=== PATIENT | female | born 1975 | race African-American/Black ===

== ENCOUNTER 2019-09-26 07:22 | Emergency (ER) | payer OTHER ==
[~2019-09-26] VITALS: Ht 165.1 cm; Wt 128.6 kg
--- OUTSIDE RECORDS SUMMARY | 2019-09-26 07:27 | XMS REPORT | Clinical Summary ---
Author Author [employer] [facility] [employer] Address Unknown Phone Unavailable Care Team Providers Care Service Order Expediter Name Role Phone Vasquez Quinones MD PCP Allergies Comments Active Allergy Reactions Severity Noted Date Amoxicillin 10/05/2016 Amoxicillin-Pot 04/07/2017 Clavulanate Ciprofloxacin 10/05/2016 Bupropion Hcl 10/05/2016 Medications End Date Status Medication Sig Dispensed Refills Start Date Active XARELTO 20 mg tablet TK 1 T PO QD 2 7 Active hydrOXYzine (ATARAX) 25 Take 25 mg by 0 MG tablet mouth. Active diphenhydrAMINE Take 50 mg by 0 (BENADRYL) 25 mg tablet mouth nightly as needed for sleep. Active HYDROcodone-acetaminophen Take 1 tablet 0 (NORCO) 10-325 mg per by mouth tablet every 6 (six) hours as needed for moderate pain. Active gabapentin (NEURONTIN) Take 1 30 capsule 0 300 mg capsule capsule (300 9 mg) by mouth once daily for 1 day, then 1 capsule twice daily for 1 day, then 1 capsule three times a day. Active Problems Not on file Encounters Care Team Description Date Type Specialty Camilo Ewing MD Left arm pain (Primary Dx); Paresthesias 01/06/2019 Emergency Emergency Medicine after 09/25/2018 Social History Date Tobacco Use Types Packs/Day Years Used Quit: 08/15/2002 Former Smoker Smokeless Tobacco: Never Used Drinks/Week oz/Week Comments Alcohol Use socially Yes Sex Assigned at Date Recorded Not on file Industry Job Start Date Occupation Not on file Not on file Not on file Travel End Travel History Travel Start No recent travel history available. Last Filed Vital Signs Reading Time Taken Comments Vital Sign 107/53 01/06/2019 4:15 AM CDT Blood Pressure 64 01/06/2019 4:15 AM CDT Pulse 35.9 C (96.7 F) 01/06/2019 4:15 AM CDT Temperature 18 01/06/2019 4:15 AM CDT Respiratory Rate 98% 01/06/2019 4:15 AM CDT Oxygen Saturation - - Inhaled Oxygen Concentration - - Weight 162.6 cm (5' 4") 01/06/2019 1:30 AM CDT Height - - Body Mass Index Plan of Treatment Health Maintenance Due Date Last Done Comments CERVICAL CANCER SCREENING 1997 INFLUENZA VACCINE 11/16/2019 Procedures Comments Procedure Name Priority Date/Time Associated Diag nosis XR CERVICAL SPINE 2 OR 3 STAT 01/06/2019 VW 2:58 AM CDT XR ELBOW 3+ VW LEFT STAT 01/06/2019 2:57 AM CDT PROTHROMBIN TIME WITH STAT 01/06/2019 INR, I-STAT 2:34 AM CDT BASIC METABOLIC PANEL STAT 01/06/2019 2:33 AM CDT HC COMPLETE BLD COUNT STAT 01/06/2019 W/AUTO DIFF 2:33 AM CDT US DUPLEX VENOUS UPPER STAT 01/06/2019 EXTREMITY LEFT 2:15 AM CDT after 09/25/2018 Results * XR Cervical Spine 2 Or 3 Vw (01/06/2019 2:58 AM CDT) Specimen Narrative Performed At Examination: XR CERVICAL SPINE 2 OR 3 VW [facility] T Clinical History: left arm pain possi ble radiculopathy Comparison: None. Findings: 3 views of the cervical spine are obtai nevaeh. No acute fracture or dislocation is see n. The disc spaces are within normal limit s. Alignment of vertebral bodies are jamal l. IMPRESSION: 1. No acute abnormality identified in c ervical spine. [facility]-[id number] Procedure Note Interface, Radiology Results Incoming - 01/06/2019 3:24 AM CDT Examination: XR CERVICAL SPINE 2 OR 3 VW Clinical History: left arm pain possible radiculopathy Comparison: None. Findings: 3 views of the cervical spine are obtain ed. No acute fracture or dislocation is seen. The disc spaces are within normal limits. Alignment of vertebral bodies are normal. IMPRESSION: 1. No acute abnormality identified in ce rvical spine. [facility]-[id number] Performing Organization Address [facility] one Number [facility] [address] [place] [address] * XR Elbow 3+ Vw Left (01/06/2019 2:57 AM CDT) Specimen Narrative Performed At EXAMINATION: XR ELBOW 3 VW LEFT [facility] CLINICAL HISTORY: pain COMPARISON: None. IMPRESSION: No fracture or dislocation. Mild to mod erate osteoarthritis of the ulnohumeral joint and mild osteoarthritis of the ra diocapitellar joint. No elbow effusion or significant soft tissue swelling. [facility]-[id number] Procedure Note Interface, Radiology Results Incoming - 01/06/2019 3:25 AM CDT EXAMINATION: XR ELBOW 3 VW LEFT CLINICAL HISTORY: pain COMPARISON: None. IMPRESSION: No fracture or dislocation. 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 No elbow effusion or significant soft tissue swelling. [facility]-[id number] Performing Organization Address [facility] one Number [address] [address] [place] [address] * Prothrombin time with INR, I-Stat (01/06/2019 2:34 AM CDT) POC prothrombin 20.9 (H) 11.0 - 14.5 sec [place] time [facility] POC INR 1.8 [place] Comment: DRUZE The International Normalized KUSUM Ratio (INR) is a therapeutic [facility] monitoring tool for patients EMERGENCY CARE who are stable on oral CENTER vitamin K antagonist therapy. An INR of 2.0-3.0 is suggested for deep vein thrombosis/pulmonary embolism. An INR of 2.5-3.5 (high dose) is suggested for some patients with mechanical heart valves) Specimen Blood Performing Organization Address [facility] one Number DEPARTMENT OF [address] [place], [place] [address] PATHOLOGY AND GENOMIC MEDICINE, [facility] NITZA NOE [address] [place] [address] [facility] * CBC with platelet and differential (01/06/2019 2:33 AM CDT) WBC 5.11 4.50 - 11.00 k/uL [facility] RBC 4.25 4.20 - 5.50 m/uL [facility] HGB 11.2 (L) 12.0 - 16.0 g/dL [facility] HCT 36.5 (L) 37.0 - 47.0 % [facility] MCV 85.9 82.0 - 100.0 fL [facility] MCH 36.4 (H) 27.0 - 34.0 pg [facility] MCHC 30.7 (L) 31.0 - 37.0 g/dL [facility] RDW - SD 45.3 37.0 - 55.0 fL [facility] MPV 9.1 8.8 - 13.2 fL [facility] Platelet count 223 150 - 400 k/uL [facility] Neutrophils 49.8 39.0 - 69.0 % [facility] Lymphocytes 34.4 25.0 - 45.0 % [facility] Monocytes 11.9 (H) 0.0 - 10.0 % [facility] Eosinophils 3.5 0.0 - 5.0 % [facility] Basophils 0.4 0.0 - 1.0 % [facility] Specimen Blood Performing Organization Address City/State/Zipcode Ph one Number DEPARTMENT OF [address] [place], [place] [address] PATHOLOGY AND GENOMIC MEDICINE, [facility] [place] [place] [address] [place] [address] [facility] * Basic metabolic panel (01/06/2019 2:33 AM CDT) Glucose 97 73 - 118 mg/dL [facility] [place] BUN 14 7 - 22 mg/dL [facility] Calcium 9.2 8.0 - 10.3 mg/dL [facility] Creatinine 0.9 0.5 - 0.9 mg/dL [facility] Sodium 141 128 - 145 mEq/L [facility] Potassium 3.8 3.6 - 5.1 mEq/L [facility] Chloride 104 98 - 108 mEq/L [facility] [place] CO2 28 18 - 33 mEq/L [facility] Anion gap 9@ANIO 7 - 15 mEq/L [facility] Specimen Plasma specimen Performing Organization Address City/State/Zipcoky Ph one Number DEPARTMENT OF [address] [place], [place] [address] PATHOLOGY AND GENOMIC MEDICINE, [facility] [place] [place] [address] [place] [address] [facility] * Us duplex venous upper extremity (01/06/2019 2:15 AM CDT) Specimen Narrative Performed At EXAMINATION: US DUPLEX VENOUS UPPER EXTREMITY LEFT [facility] CLINICAL HISTORY: left arm pain ple ase eval for DVT COMPARISON: None. TECHNIQUE: Grayscale, color Doppler, and spectral waveform analysis of the left upper extremity deep venous system was performed. FINDINGS: The left internal jugular vein demonstr ates normal flow and compressibility. The left subclavian, axillary, brachial, ba silic, cephalic, and forearm veins reveal no evidence of thrombosis. The veins de monstrate normal Doppler flow and normal compressibility. IMPRESSION: Normal left upper extremity venous Dopp ler examination. No sonographic evidence of deep venous thrombosis of the left u pper extremity. [facility]-[id number] Procedure Note Interface, Radiology Results Incoming - 01/06/2019 2:39 AM CDT EXAMINATION: US DUPLEX VENOUS UPPER EXTREMITY LEFT CLINICAL HISTORY: left arm pain please eval for DVT COMPARISON: None. TECHNIQUE: Grayscale, color Doppler, and spectral waveform analysis of the left upper extremity deep venous system was performed. FINDINGS: The left internal jugular vein demonstrates normal flow and compressibility. The left subclavian, axillary, brachial, basilic, cephalic, and forearm veins reveal no evidence of thrombosis. The veins demonstrate normal Doppler flow and normal compressibility. IMPRESSION: Normal left upper extremity venous Doppler examination. No sonographic evidence of deep venous thrombosis of the left upper extremity. [facility]-[id number] Performing Organization Address City/State/Ziporde Ph one Number [facility] [address] [place] [address] after 09/25/2018 Insurance Type Payer Benefit Subscriber ID Effective Phone Address Plan / Dates Group Commercial COMMERCIAL [facility] [id number] 2016- COMMERCIAL Present O UHC MEDICAID [employer] xxxxxxxxx [id number] YARA PATEL [facility] [phone] Third Self 1975 [id number] [employer] (Home) [place], [place] Liability [id number] Advance Directives For more information, please contact: [phone] Patient Product Tester Explanation Type Date Recorded Advance Directives, 01/06/2019 5:23 AM Living Will and Medical Power of Diagrammer Advance Directives, 04/07/2017 11:09 PM Living Will and Medical Power of Diagrammer
--- OUTSIDE RECORDS SUMMARY | 2019-09-26 07:27 | XMS REPORT | Summary of Care ---
Author Author Babak Braun, FREEMAN SHANKAR Organization Unknown Address Unknown Phone Unavailable Care Team Providers Care Embossing Toolsetter Name Role Phone Baabk Braun, Isabelle Unavailable Unavailable SOFIE CALLOWAY, DION Unavailable Unavailable SEBLE CALLOWAY, ARIELLE Unavailable Unavailable EVA HERRERA MD Unavailable Unavailable FIOR CALLOWAY, GREER Butler Unavailable Unavailable JULIAN CALLOWAY ND, HEATHER Goldberg Unavailable Unavailable Unavailable Unavailable Functional Status Name Dates Details Functional status health issues are not documented Status: Name Dates Details Cognitive status health issues are not d ocumented Status: Problems Name Dates Details Encounter for routine gynecological exam ination (V72.31, Z01.419) Status: Active Anemia (285.9, D64.9) Status: Active Screening for blood disease (V78.9, Z13. 0) Status: Active Depression (311, F32.9) Status: Active Anxiety (300.00, F41.9) Status: Active Chronic low back pain (724.2, M54.5) Status: Active Medication management (V58.69, Z79.899) Status: Active Excessive and frequent menstruation with regular cycle (626.2, N92.0) Status: Active Numbness (782.0, R20.0) Status: Active Tingling (782.0, R20.2) Status: Active Left elbow pain (719.42, M25.522) Status: Active Bilateral carpal tunnel syndrome (354.0, G56.03) Status: Active Breast cancer screening by mammogram (V7 6.12, Z12.31) Status: Active Left cervical radiculopathy (723.4, M54. 12) Status: Active Medications Name Dates Details Xarelto 20 MG Oral Tablet TAKE 1 TABLET DAILY Active traMADol HCl - 50 MG Oral Tablet TAKE 1 TABLET 4 TIMES DAILY * Refills: 0 Active Gabapentin CAPS * Refills: 0 Active [place] TABS * Refills: 0 Active Allergies and Adverse Reactions Name Dates Details amoxicillin (Allergy) Status: Active Augmentin TABS (Allergy) Status: Active Cipro TABS (Allergy) Status: Active Wellbutrin TABS (Allergy) Status: Active Past Medical History Name Dates Details History of Occipital neuralgia (723.8, M 54.81) Status: Resolved History of Pulmonary Embolism (V12.55) Status: Resolved Procedures Procedure Dates Details . [facility] - Affirm VPIII (BV Panel) Date: 18-Jan-2019 . [facility] - GC/Chlamydia Date: 18-Jan-2019 [place] Digital Mammo Screen John w yaz [id number] Date: 18-Jan-2019 MRI Spine cervical wo contrast [id number] Date: 22-Jan-2019 [U] XRAY HUMERUS MIN 2 VWS LEFT [id number] Date: 08-Jan-2019 History of Laparoscopy (Diagnostic) Comp leted History of Ovarian Cystectomy Completed History of Cervical Conization Completed Immunization Name Dates Details Immunizations not documented Family History Name Dates Details Family history of Hypertension (V17.49) Comments: Family History Status: Active Family history of Asthma (V17.5) Comments: Family History Status: Active Family history of Diabetes Mellitus (V18 .0) Comments: Family History Status: Active Family history of hypertension (V17.49, Z82.49) Comments: Family History Status: Active Family history of Heart trouble (429.9, I51.9) Comments: Multiple Family Me mbers Status: Active Family history of cancer (V16.9, Z80.9) Comments: Multiple Family Me mbers Status: Active Family history of mental disorder (V17.0 , Z81.8) Comments: Multiple Family Me mbers Status: Active Family history of complications due to g eneral anesthesia (V19.8, Z84.89) Comments: Other Status: Active Name Dates Details Family history of Diabetes Mellitus (V18 .0) Status: Active Name Dates Details Family history of Breast Cancer (V16.3) Status: Active Family history of Diabetes Mellitus (V18 .0) Status: Active Family history of cancer (V16.9, Z80.9) Status: Active Name Dates Details Family history of mental disorder (V17.0 , Z81.8) Status: Active Social History Name Dates Details - Status: Name Dates Details Former smoker Vital Signs Date Test Result Details [id number] BP Systolic 125 mm[Hg] Status: Comments: Lo cation: LUE; Position: Sitting BP Diastolic 81 mm[Hg] Status: Comments: Lo cation: LUE; Position: Sitting Height 64.5 in Status: Weight 285 lb Status: Body Mass Index Calculated 48.16 kg/m2 Status: Body Surface Area Calculated 2.29 m2 Status: Temperature 98.7 f Status: Comments: Me thod: Oral Heart Rate 89 /min Status: Comments: Qu ality: Normal :14 BP Systolic 112 mm[Hg] Status: Comments: Lo cation: LUE; Position: Sitting BP Diastolic 71 mm[Hg] Status: Comments: Lo cation: LUE; Position: Sitting Height 64 in Status: Weight 286 lb Status: Body Mass Index Calculated 49.09 kg/m2 Status: Body Surface Area Calculated 2.28 m2 Status: Temperature 98.6 f Status: Comments: Me thod: Oral Heart Rate 72 /min Status: :34 BP Systolic 133 mm[Hg] Status: Comments: Lo cation: RUE; Position: Sitting BP Diastolic 86 mm[Hg] Status: Comments: Lo cation: RUE; Position: Sitting Height 64 in Status: Weight 287.5 lb Status: Body Mass Index Calculated 49.35 kg/m2 Status: Body Surface Area Calculated 2.28 m2 Status: Temperature 98.3 f Status: Comments: Me thod: Oral Heart Rate 90 /min Status: Comments: Lo cation: R Brachial Artery; Quality: Normal Results Date Description Value Details :45 [U] XRAY ELBOW MIN 3 VWS LEFT [id number] XR ELBOW MIN 3 VWS LEFT Images acquired, not reported on this accession number. :06 [QH] HEPATITIS B SURFACE ANTIGEN W/REFL CONFIRM Hepatitis B Surface Antigen Negative Rang e: Negative :06 [QL] HEPATITIS C ANTIBODY Hepatitis C Antibody Negative Range: Nega tive :06 [QH] HIV AB, HIV 1/2, EIA, WITH REFLEXES HIV Ag/Ab 4th Gen Negative Range: Negativ e Comments: HIV test results should be considered positive only when both the screening andthe confirmatory tests are positive. A negative confirmatory test in patientswith a positive screening test does not exclude HIV infection. If clincallywarranted, an HIV RNA quantitative test should be ordered. :06 [QLH] RPR RPR Non-Reactive Range: Non-React dorinda Plan of Care Name Dates Details Planned Observations Planned Goals not documented Planned Encounters Appointment; GREER CHILDRESS M.D. On: 26-Feb-2019 13:30 Appointment; EVA HERRERA M.D. On: 13-Mar-2019 10:15 Appointment; DION CARRIZALES M.D. On: 17-Jan-2020 11:00 Instructions Name Dates Details Instructions not documented Encounters Appointment; ARIELLE PRUETT M.D. Encounter Diagnosis: Problem not documented On: 09-Jan-2019 14:00 Appointment; EVA HERRERA M.D. Encounter Diagnosis: Problem not documented On: 11-Jan-2019 8:30 Appointment; DION CARRIZALES M.D. Encounter Diagnosis: Problem not documented On: 18-Jan-2019 14:00 Appointment; GREER CHILDRESS M.D. Encounter Diagnosis: Problem not documented On: 22-Jan-2019 11:00
--- OUTSIDE RECORDS SUMMARY | 2019-09-26 07:27 | XMS REPORT | Summary of Care ---
Author Author Babak Braun, FREEMAN SHANKAR Organization Unknown Address Unknown Phone Unavailable Care Team Providers Care Ore Crushing Dust Collector Name Role Phone MAT Burns, ROSALINA Unavailable Unavailable Babak Braun, Isabelle Unavailable Unavailable SOFIE CALLOWAY, DION Unavailable Unavailable SEBLE CALLOWAY, ARIELLE Unavailable Unavailable SHARON CALLOWAY, EVA Gay Unavailable Unavailable FIOR CALLOWAY, GREER Butler Unavailable Unavailable JULIAN CALLOWAY, HEATHER Goldberg Unavailable Unavailable AIDA CALLOWAY, COLEMAN Unavailable Unavailable MAT CALLOWAY UT, ROSALINA Unavailable Unavailable Unavailable Unavailable Functional Status Name [...] cervical radiculopathy (723.4, M54. 12) Status: Active Atypical face pain (350.2, G50.1) Status: Active Deviated septum (470, J34.2) Status: Active Chronic rhinitis (472.0, J31.0) Status: Active Acute recurrent sinusitis (461.9, J01.91 ) Status: Active Poor dentition (525.9, K08.9) Status: Active Medications Name Dates Details Xarelto 20 MG Oral Tablet TAKE 1 TABLET DAILY Active traMADol HCl - 50 MG Oral Tablet TAKE 1 TABLET 4 TIMES DAILY * Refills: 0 Active [place] TABS * Refills: 0 Active Fluticasone Propionate 50 MCG/ACT Nasal Suspension USE 1 SPRAY IN EACH NOSTRIL TWICE DAILY. * Quantity: 1 Refills: 3 MAT Grant, ROSALINA * Start : 22-May-2019 Active 9.9 ML Bottle Allergies and Adverse Reactions Name Dates Details amoxicillin (Allergy) Status: Active Augmentin TABS (Allergy) Status: Active Cipro TABS (Allergy) Status: Active Wellbutrin TABS (Allergy) Status: Active Past Medical History Name Dates Details History of Occipital neuralgia (723.8, M 54.81) Status: Resolved History of Pulmonary Embolism (V12.55) Status: Resolved Procedures Procedure Dates Details History of Laparoscopy (Diagnostic) Comp leted History [...] Dates Details - Status: Name Dates Details Ex-smoker (finding) Vital Signs Date Test Result Details No Known Vitals to report Results Date Description Value Details Results not documented Plan of Care Name Dates Details Planned Observations Planned Goals not documented Planned Encounters Appointment; DION CARRIZALES M.D. On: 17-Jan-2020 11:00 Instructions Name Dates Details Instructions not documented Encounters Appointment; ARIELLE PRUETT M.D. Encounter Diagnosis: Problem not documented On: 09-Jan-2019 14:00 Appointment; EVA HERRERA M.D. Encounter Diagnosis: Problem not documented On: 11-Jan-2019 8:30 Appointment; DION CARRIZALES M.D. Encounter Diagnosis: Problem not documented On: 18-Jan-2019 14:00 Appointment; GREER CHILDRESS M.D. Encounter Diagnosis: Problem not documented On: 22-Jan-2019 11:00 Appointment; GREER CHILDRESS M.D. Encounter Diagnosis: Problem not documented On: 26-Feb-2019 13:30 Appointment; EVA HERRERA M.D. Encounter Diagnosis: Problem not documented On: 13-Mar-2019 10:15 Appointment; ROSALINA RIVERO M.D. Encounter Diagnosis: Problem not documented On: 22-May-2019 9:15 Appointment; ROSALINA RIVERO M.D. Encounter Diagnosis: Problem not documented On: 18-Jun-2019 10:30
--- OUTSIDE RECORDS SUMMARY | 2019-09-26 07:27 | XMS REPORT | Continuity of Care Document ---
Author Author [facility] t Organization [facility] Address 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 Attphys Unavailable Julian Bee MD Attphys EVA HERRERA M.D. Attphys Unavailable GREER CHILDRESS M.D. Attphys Unavailable DION CARRIZALES M.D. Attphys Unavailable ARIELLE PRUETT M.D. Attphys Unavailable Gildardo CALLOWAY, Glenroy Page Attphys Brisa Malcolm MD Attphys [phone] JULIAN BEE Attphys Unavailable KENDELLDESMOND Attphys Unavailable Felipe Aubrie Attphys MARCUS FELIPEBILE Admphys Unavailable KENDELL, ACitlalli SALMAN Admphys Unavailable Felipe, Aubrie Admphys Payers Payer Name Policy Type Policy Number Effective Date Expiration Date S rosa MEDICAID - MEDICAID MGD CARED COMM STAR PLANxxxxxxxxxMe dicaid Contracted xxxxxxxxx [facility] COMMERCIAL MISCMISC [id number] mmercial [id number] 2016 00:00:00 John Rosales [facility] [place] [id number]-Pr esentHMO xxxxxxxxx 2018 00:00:00 John Rosales Problems Condition Name Condition Details Condition Category Status Onset Date Resolution Date Last Treatment Date Treating Clinician Comments Source Cellulitis Cellulitis Disease Active 2017-11-22 00:00:00 [facility] Fibroid, uterine Fibroid, uterine Disease Active 2015-11-04 00:00:00 [facility] Menorrhagia with irregular cycle Menorrhagia with irregular cycl e Disease Active 2015-11-04 00:00:00 [facility] Menorrhagia Menorrhagia Disease Active 2015-09-28 00:00:00 [facility] Pulmonary embolism (disorder) Pulmonary embolism (disorder) Active 04/17/2012 Problem 11/01/2017 Pt reports > 6 PE, cause unknown per pt. 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 [facility] Problem Active 2012-04-17 00:0 0:00 2017-11-01 04:02:05 [facility] History of Pulmonary Embolism History of Pulmonary Embolism Problem Resolved [facility] History of Occipital neuralgia History of Occipital neuralgia Probl em Resolved [facility] Encounter for routine gynecological examination Encoun ter for routine gynecological examination Problem Active [facility] Anemia Anemia Problem Active [facility] Screening for blood disease Screening for blood disease Problem Active [facility] Depression Depression [facility] Anxiety Anxiety Problem Active [facility] Chronic low back pain Chronic low back pain Problem Active [facility] Medication management Medication management Problem Active [facility] Excessive and frequent menstruation with regular cycle Excessive and frequent menstruation with regular cycle Problem Active [facility] Numbness Numbness Problem [facility] Tingling Tingling Problem Active [facility] Left elbow pain Left elbow pain Problem Active [facility] Bilateral carpal tunnel syndrome Bilateral carpal tunnel syndrom e Problem Active [facility] Breast cancer screening by mammogram Breast cancer screening by mammogram Problem Active [facility] Left cervical radiculopathy Left cervical radiculopathy Problem Active [facility] Atypical face pain Atypical face pain Problem Active [facility] Deviated septum Deviated septum Problem Active [facility] Chronic rhinitis Chronic rhinitis Problem Active [facility] Acute recurrent sinusitis Acute recurrent sinusitis Problem Active [facility] Poor dentition Poor dentition Problem Active [facility] Anemia (disorder) Anem ia (disorder) Resolved Problem 11/01/2017 HX of iron infusion and blood transfusion. Hysterectomy done 2016 denies any problems since procedure [facility] Problem Resolved 2017-11-01 04:02:05 Indu Benson Anxiety (finding) Anxi ety (finding) Active Problem 11/01/2017 [facility] Problem Active 2017-11-01 04:02:05 Raul Benson Swelling of first metatarsophalangeal joint of hallux (disorder) Swelling of first metatarsophalangeal joint of hallux (disorder) Active Problem 11/01/2017 [facility] Problem Active 2017-11-01 04:02:05 Indu Benson Foot pain (finding) Foot pain (finding) Active Problem 11/01/2017 [facility] Problem Active 2017-11-01 04:02:05 Indu Benson Sleep apnea (finding) Slee p apnea (finding) Active Problem 11/01/2017 does not use cpap machine [facility] Problem Active 2017-11-01 04:02:05 Indu Benson Plantar fascial fibromatosis P lantar fascial fibromatosis 10/30/2017 11/01/2017 [facility] Problem 2017-10-15 6 05:00:00 2017-11-01 04:02:05 2017-11-01 04:02:05 Indu brush Allergies, Adverse Reactions, Alerts Allergy Name Allergy Type Status Severity Reaction(s) Onset Date Inacti ve Date Treating Clinician Comments Source Amoxicillin-Pot Clavulanate Propensity to adverse reactions to drug A ctive 2017-04-07 00:00:00 John Meth odist Amoxicillin Propensity to adverse reactions to drug Active 2016-10-05 00:00:00 John du Ciprofloxacin Propensity to adverse reactions to drug Active 2016-10-05 00:00:00 John du Bupropion Hcl Propensity to adverse reactions to drug Active 2016-10-05 00:00:00 John du Amoxicillin-Pot Clavulanate Propensity to adverse reactions Active Itching 2015-09-24 00:00:00 [facility] Ciprofloxacin Drug Allergy Active Shortness Of Breath 2016-06-0 9 00:00:00 While taking Coumadin [facility] Bupropion Hcl Propensity to adverse reactions Active S dunia 2015-09-24 00:00:00 [facility] amoxicillin Allergy to drug (finding) Active [facility] Augmentin TABS Allergy to drug (finding) Active [facility] Wellbutrin TABS Allergy to drug (finding) Active [facility] Augmentin Augmentin Active Moderate Me morial Marcelino Cipro Cipro Active Moderate [facility] Wellbutrin Wellbutrin Active Moderate Angioedema (disorder) [facility] Family History Family Member Diagnosis Comments Start Date Stop Date Source Unknown Family Member Family history of Hypertension Family History [facility] Unknown Family Member Family history of Asthma Family History [facility] Unknown Family Member Family history of Diabetes Mellitus Family Hist ory [facility] Unknown Family Member Family history of hypertension Family History [facility] Unknown Family Member Family history of Heart trouble Multiple Fami ly Members [facility] Unknown Family Member Family history of cancer Multiple Family Member s [facility] Unknown Family Member Family history of mental disorder Multiple Family Members [facility] ns Unknown Family Member Family history of complications due to general anesthesia Other [facility] Grandmother Family history of Diabetes Mellitus [facility] Mother Family history of Breast Cancer [facility] Mother Family history of Diabetes Mellitus [facility] Mother Family history of cancer [facility] Sister Family history of mental disorder [facility] Maternal grandfather Heart disease [facility] Maternal grandmother Heart disease C [facility] Natural mother Cancer [facility] Natural mother Diabetes [facility] Natural mother Heart disease [facility] Social History Social Habit Start Date Stop Date Quantity Comments Source Sex Assigned At Norberto Rosales Alcohol intake 2017-11-21 00:00:00 2017-11-21 00:00:00 Current drinker of alcohol (finding) John Rosales Alcohol Comment 2017-08-15 00:00:00 2017-08-15 00:00:00 socially John Rosales History of tobacco use 2002-04-17 00:00:00 Current smoker [facility] Smoking Status Start Date Stop Date Source Former smoker 2017-11-21 00:00:00 2017-11-21 00:00:00 John Rosales Medications Ordered Medication Name Filled Medication Name Start Date Stop Da te Current Medication? Ordering Clinician Indication Dosage Frequency Signature (SIG) Comments Components Source Fluticasone Propionate 50 MCG/ACT Nasal Suspension Flu ticasone Propionate 50 MCG/ACT Nasal Suspension 2019-05-22 00:00:00 Yes ROSALINA RIVERO M.D. Q0.5D USE 1 SPRAY IN EACH NOSTRIL TWICE DAILY. [facility] fluticasone propionate (FLONASE) 50 mcg/actuation nasal spra y 2019-04-30 00:00:00 2020-04-29 23:59:00 No 2{spray} QD 2 sprays b y Nasal route daily. [facility] acet[facility] (TYLENOL #3) 300-30 mg per tablet 2019-04-30 00:00:00 2019-05-10 23:59:00 No 1{tbl} Take 1 tablet by mouth every 6 (six) hours as needed for Pain for up to 10 days. Max Daily Amount: 4 tablets [facility] methylPREDNISolone (MEDROL DOSEPACK) 4 mg tablet 2019-04-30 00:00:00 2019-05-07 23:59:00 No follow package direc tions. [facility] AZITHROmycin (ZITHROMAX) 250 MG tablet 2019-04-17 4 00:00:00 2019-05-05 23:59:00 No 250mg QD Take 1 tablet (250 mg total) by mouth daily for 5 days Take first 2 tablets together, then 1 every day until finished.. [facility] HYDROcodone-acetaminophen (NORCO) 10-325 mg per tablet 2019-01-06 01:33:56 Yes 1{tbl} Q6H Take 1 tablet b y mouth every 6 (six) hours as needed for moderate pain. John Rosales gabapentin (NEURONTIN) 300 mg capsule 2019-01-06 00:00:00 Y es Take 1 capsule (300 mg) by mouth once daily for 1 day, then 1 capsule twice daily for 1 day, then 1 capsule three times a day. Juan Rosales chlorhexidine (HIBICLENS) 4 % external liquid 20 03-12-28 00:00:00 2018-12-27 23:59:00 No 3mL Apply 3 mLs topicall y daily as needed for up to 14 days. [facility] traMADol (ULTRAM) 50 mg tablet 2018-12-13 00:00:00 2018-12-23 23 :59:00 No 50mg Take 1 tablet (50 mg total) by mouth every 6 (six) hours as needed for Pain for up to 10 days. Max Daily Amount: 200 mg [facility] methocarbamol (ROBAXIN) 500 MG tablet 2018-12-13 00:00 :00 2018-12-23 23:59:00 No 500mg Q.5D Take 1 tablet ( 500 mg total) by mouth 2 (two) times daily for 10 days. [facility] diphenhydrAMINE (BENADRYL) 25 mg tablet 2017-11-22 03:16:29 Yes 25mg Take 25 mg by mouth every night as needed for Sleep. [facility] Dilaudid 2017-10-30 21:15:00 No 0.5 mg = 0.5 mL, Injection, IV Push, q10min PRN for pain severe (7-10), first dose 10/30/17 16:15:00 [facility]T [facility] Diphenhydramine 2017-10-30 21:15:00 No 25 mg = 0.5 mL, Injection, IV Push, Once PRN for itching, first dose 10/30/17 16:15:00 T [facility] Levalbuterol 0.21 MG/ML Inhalant Solution [Xopenex] 16 21:15:00 No 0.63 mg = 3 mL, Soln, NEB, Once PRN for wheezing, first dose 10/30/17 16:15:00 CDT [facility] Demerol HCl 2017-10-30 21:15:00 No 12.5 mg = 0.5 mL, Injection, IV Push, Once PRN for shivers, first dose 10/30/17 16:15:00 T [facility] Ondansetron 2017-10-30 21:15:00 No 4 mg = 2 mL, Injection, IV Push, q15min PRN for nausea, order duration: 2 doses, first dose 10/30/17 16:15:00 CDT, stop date Limited # of times [facility] [place] Promethazine 2017-10-30 21:15:00 No 12.5 mg = 0.5 mL, Injection, IM, Once PRN for vomiting, first dose 10/30/17 16:15:00 CDT [facility] Saline Lock Flush 2017-10-30 21:15:00 No 10 mL, Soln, IV Push, As Indicated PRN for flush, first dose 10/30/17 16:15:00 CDT [facility] LR 1,000 mL 2017-10-30 21:15:00 No 1,000 mL, IV, 75 mL/hr, start date 10/30/17 16:15:00 CDT [facility] Lactated Ringers Injection 2017-10-30 21:10:00 No IV, start date 10/30/17 16:10:00 CDT, stop date 10/30/17 16:10:00 CDT [facility] ketorolac 2017-10-30 21:02:00 No 30 mg = 1 mL, Injection, IV, Once, first dose 10/30/17 16:02:00 CDT, stop date 10/30/17 16:02:00 CDT [facility] ondansetron 2017-10-30 20:59:00 No 4 mg = 2 mL, Injection, IV, Once, first dose 10/30/17 15:59:00 CDT, stop date 10/30/17 15:59:00 CDT [facility] fentaNYL 2017-10-30 20:58:00 No 50 mcg = 1 mL, Injection, IV, Once, first dose 10/30/17 15:58:00 CDT, stop date 10/30/17 15:58:00 CDT [facility] fentaNYL 2017-10-30 20:46:00 No 50 mcg = 1 mL, Injection, IV, Once, first dose 10/30/17 15:46:00 CDT, stop date 10/30/17 15:46:00 CDT [facility] Misc Medication 2017-10-30 20:15:00 No 1,000 mL, Soln-IV, IV, Once, first dose 10/30/17 15:15:00 CDT, stop date 10/30/17 15:15:00 CDT [facility] ceFAZolin 2017-10-30 19:53:00 No 1 gm, Soln-IV, IV Piggyback, Once, first dose 10/30/17 14:53:00 CDT, stop date 10/30/17 14:53:00 CDT [facility] fentaNYL 2017-10-30 19:51:00 No 50 mcg = 1 mL, Injection, IV, Once, first dose 10/30/17 14:51:00 CDT, stop date 10/30/17 14:51:00 CDT [facility] dexamethasone 2017-10-30 19:47:00 No 8 mg = 2 mL, Injection, IV, Once, first dose 10/30/17 14:47:00 CDT, stop date 10/30/17 14:47:00 CDT [facility] propofol 2017-10-30 19:38:00 No 150 mg = 15 mL, Emulsion, IV, Once, first dose 10/30/17 14:38:00 CDT, stop date 10/30/17 14:38:00 CDT [facility] lidocaine 2017-10-30 19:37:00 No 5 mL, Injection, IV, Once, first dose 10/30/17 14:37:00 CDT, stop date 10/30/17 14:37:00 CDT [facility] midazolam 2017-10-30 19:36:00 No 2 mg = 2 mL, Injection, IV, Once, first dose 10/30/17 14:36:00 CDT, stop date 10/30/17 14:36:00 CDT [facility] fentaNYL 2017-10-30 19:35:00 No 100 mcg = 2 mL, Injection, IV, Once, first dose 10/30/17 14:35:00 CDT, stop date 10/30/17 14:35:00 CDT [facility] Cephalexin 500 MG Oral Capsule [Keflex] 2017-10-30 18:07:00 Yes 500 mg = 1 caps, Oral, q6hr, 0 Refill(s) [facility] [place] Cefazolin 2017-10-30 18:00:00 No 120 kg, Pr ophylaxis [facility] LR 1,000 mL 2017-10-30 17:46:00 No 1,000 mL, IV, 30 mL/hr, start date 10/30/17 12:46:00 CDT [facility] Lidocaine 2% 0.2 mL IV Start [[facility]] 2017-10-30 17:46:00 No 0.2 mL, Injection, Subcutaneous, Once PRN for other (see comment), first dose 10/30/17 12:46:00 CDT Indu Benson diphenhydrAMINE (BENADRYL) 25 mg tablet 2017-10-28 02:27:34 Yes 50mg QD Take 50 mg by mouth nightly as needed for sleep. John Rosales 1 ML Enoxaparin sodium 100 MG/ML Prefilled Syringe [Lovenox] 2017-10-27 19:43:00 Yes 100 mg = 1 mL, Subcutaneous, q12hr, # 10 EA, 0 Refill(s), Blood clots Indu Benson tramadol hydrochloride 50 MG Oral Tablet 2017-10-26 21:10:00 Yes mg tabs, Oral, q4hr, 0 Refill(s), pain Raul rial Marcelino clonazePAM 1 mg oral tablet 2017-10-26 21:10:00 Yes 1 mg = 1 tabs, Oral, qAM, 0 Refill(s), anxiety Indu Benson rivaroxaban 20 MG Oral Tablet [Xarelto] 2017-10-26 21:09:00 Yes mg tabs, Oral, qPM, 0 Refill(s), PE Memoria l Marcelino hydrOXYzine (ATARAX) 25 MG tablet 2017-04-07 20:47:12 Yes 25mg Take 25 mg by mouth. John Rosales XARELTO 20 mg tablet 2017-03-12 00:00:00 Yes TK 1 T PO QD John Rosales rivaroxaban (XARELTO) 20 mg Tab tablet 2015-09-24 18:10:51 Yes QD Take by mouth daily. [facility] HYDROcodone-acetaminophen (NORCO 10-325) 10-325 mg per table t 2015-09-24 18:10:51 Yes 1{tbl} Take 1 tab let by mouth every 6 (six) hours as needed for Pain. [facility] hydrOXYzine (ATARAX) 25 MG tablet 2015-09-24 18:10:51 Yes 25mg Take 25 mg by mouth 3 (three) times daily as needed for Itching. [facility] Xarelto 20 MG Oral Tablet Xarelto 20 MG Oral Tablet Yes 1 QD TAKE 1 TABLET DAILY [facility] traMADol HCl - 50 MG Oral Tablet traMADol HCl - 50 MG Oral Tablet Yes 1 Q0.25D TAKE 1 TABLET 4 TIMES DAILY [facility] Harts TABS Harts TABS Yes [facility] Vital Signs Vital Name Observation Time Observation Value Comments Source BP Systolic 2019-05-22 09:29:00 157 mm[Hg] Location: DEANNE Kim on: Sitting [facility] BP Diastolic 2019-05-22 09:29:00 95 mm[Hg] Location: DEANNE Positi on: Sitting [facility] Height 2019-05-22 09:29:00 64.5 [in_us] [facility] Weight 2019-05-22 09:29:00 280 [lb_av] [facility] Body Mass Index Calculated 2019-05-22 09:29:00 47.32 kg/m2 [facility] Temperature 2019-05-22 09:29:00 98.9 [degF] Method: Oral [facility] Heart Rate 2019-05-22 09:29:00 86 /min [facility] Systolic blood pressure 2019-04-30 16:45:00 120 mm[Hg] [facility] Diastolic blood pressure 2019-04-30 16:45:00 80 mm[Hg] [facility] Heart rate 2019-04-30 16:45:00 82 /min [facility] Body temperature 2019-04-30 16:45:00 36.67 [facility] Respiratory rate 2019-04-30 16:45:00 16 /min [facility] Body height 2019-04-30 12:24:00 165.1 cm [facility] Body weight Measured 2019-04-30 12:24:00 127.007 kg [facility] BMI 2019-04-30 12:24:00 46.59 kg/m2 [facility] Oxygen saturation in Arterial blood by Pulse oximetry 04-30 12:24:00 97 /min [facility] Systolic 2019-01-22 11:24:00 125 mm[Hg] Location: DEANNE Kim on: Sitting [facility] BP Diastolic 2019-01-22 11:24:00 81 mm[Hg] Location: CATERINAE; Positi on: Sitting [facility] Height 2019-01-22 11:24:00 64.5 [in_us] [facility] Weight 2019-01-22 11:24:00 285 [lb_av] [facility] Body Mass Index Calculated 2019-01-22 11:24:00 48.16 kg/m2 [facility] Temperature 2019-01-22 11:24:00 98.7 [degF] Method: Oral [facility] Heart Rate 2019-01-22 11:24:00 89 /min Quality: Normal [facility] BP Systolic 2019-01-18 14:14:00 112 mm[Hg] Location: SHAUN; Positi on: Sitting [facility] BP Diastolic 2019-01-18 14:14:00 71 mm[Hg] Location: SHAUN; Positi on: Sitting [facility] Weight 2019-01-18 14:14:00 286 [lb_av] [facility] Body Mass Index Calculated 2019-01-18 14:14:00 49.09 kg/m2 [facility] Temperature 2019-01-18 14:14:00 98.6 [degF] Method: Oral [facility] Heart Rate 2019-01-18 14:14:00 72 /min [facility] Height 2019-01-18 14:14:00 64 [in_us] [facility] BP Systolic 2019-01-09 14:34:00 133 mm[Hg] Location: RUE; Positi on: Sitting [facility] BP Diastolic 2019-01-09 14:34:00 86 mm[Hg] Location: RUWilfrid; Positi on: Sitting [facility] Height 2019-01-09 14:34:00 64 [in_us] [facility] Weight 2019-01-09 14:34:00 287.5 [lb_av] [facility] Body Mass Index Calculated 2019-01-09 14:34:00 49.35 kg/m2 [facility] Temperature 2019-01-09 14:34:00 98.3 [degF] Method: Oral [facility] Heart Rate 2019-01-09 14:34:00 90 /min Location: R Brachial Artery; Quality: Normal [facility] Systolic blood pressure 2019-01-06 04:15:02 107 mm[Hg] [facility] Diastolic blood pressure 2019-01-06 04:15:02 53 mm[Hg] [facility] Heart rate 2019-01-06 04:15:02 64 /min [facility] Body temperature 2019-01-06 04:15:02 35.94 [facility] Respiratory rate 2019-01-06 04:15:02 18 /min [facility] Oxygen saturation in Arterial blood by Pulse oximetry 01-06 04:15:02 98 /min [facility] Body height 2019-01-06 01:30:00 162.6 cm [facility] Respitory Rate 2017-10-30 23:20:00 [facility] [place] Respitory Rate 2017-10-30 22:10:00 Memori al Marcelino Systolic (mm Hg) 2017-10-30 22:10:00 Raul rial Marcelino Diastolic (mm Hg) 2017-10-30 22:10:00 Mem orial Marcelino Heart Rate 2017-10-30 22:10:00 [facility] Marcel[facility] Systolic (mm Hg) 2017-10-30 22:00:00 Raul rial [place] Diastolic (mm Hg) 2017-10-30 22:00:00 Mem [facility] [place] Respitory Rate 2017-10-30 22:00:00 Memori al Marcelino Heart Rate 2017-10-30 22:00:00 [facility] Marcel[facility] Systolic (mm Hg) 2017-10-30 21:50:00 Raul rial Marcelino Diastolic (mm Hg) 2017-10-30 21:50:00 Mem [facility] [place] Heart Rate 2017-10-30 21:50:00 [facility] Temperature Oral (F) 2017-10-30 21:00:00 36.9 [facility] Height 2017-10-30 18:20:00 163.8 cm [facility] [place] Temperature Oral (F) 2017-10-30 18:20:00 36.9 [facility] Temperature Oral (F) 2017-10-30 18:14:00 36.9 [facility] Height 2017-10-30 18:14:00 163.8 cm [facility] [place] Temperature Oral (F) 2017-10-30 18:00:00 36.9 [facility] Height 2017-10-30 18:00:00 163.8 cm [facility] Procedures Procedure Date / Time Performed Performing Clinician [facility] e CT Sinus wo contrast [id number] 2019-05-22 00:00:00 [facility] MRI Spine cervical wo contrast [id number] 2019-01-22 00:00:00 [facility] . [facility] - Affirm VPIII (BV Panel) 2019-01-18 00:00:00 [facility] . [facility] - GC/Chlamydia 2019-01-18 00:00:00 [facility] [] HEPATITIS B SURFACE ANTIGEN W/REFL CONFIRM 2019-01-18 00:00 :00 [facility] [] HIV AB, HIV 1/2, EIA, WITH REFLEXES 2019-01-18 00:00:00 [facility] [[facility]] HEPATITIS C ANTIBODY 2019-01-18 00:00:00 [facility] [[facility]] RPR 2019-01-18 00:00:00 [place] [facility] MA Digital Mammo Screen John w yaz [id number] 2019-01-18 00:00:00 [facility] [[facility]] EMG 2019-01-16 00:00:00 [facility] [U] XRAY ELBOW MIN 3 VWS LEFT [id number] 2019-01-08 00:00:00 [facility] [U] XRAY HUMERUS MIN 2 VWS LEFT [id number] 2019-01-08 00:00:00 [facility] XR CERVICAL SPINE 2 OR 3 VW 2019-01-06 02:58:00 Camilo Ewing XR ELBOW 3+ VW LEFT 2019-01-06 02:57:39 Camilo Ewing PROTHROMBIN TIME WITH INR, I-STAT 2019-01-06 02:34:00 Richard Ewing HC COMPLETE BLD COUNT W/AUTO DIFF 2019-01-06 02:33:00 Richard Ewing BASIC METABOLIC PANEL 2019-01-06 02:33:00 Camilo Ewing US DUPLEX VENOUS UPPER EXTREMITY LEFT 2019-01-06 02:15:44 Camilo Goetz BUNIONECTOMY; W/SESAMOIDECTOMY; W/PROXIM AL PHALANX OSTEOTOMY [id number] (Left)<sup>1</sup> 2017-10-30 19:52:00 [facility] CORRECTION HALLUX VALGUS W/SESAMOIDECTOMY ANY METHOD 2 [id number] (Left)<sup>2</sup> 2017-10-30 19:52:00 [facility] FASCIECTOMY PLANTAR FACIA PARTIAL [id number] (Left)<sup>3</sup> 2 19:52:00 [facility] Partial hysterectomy<sup>4</sup> 2015-04-17 00:00:00 [facility] Cone biopsy of cervix 2009-04-17 00:00:00 Yvonne Plummer History of Laparoscopy (Diagnostic) [facility] of C[facility]tt[facility] Laparoscopy [facility] Plan of Care Planned Activity Planned Date Details Comments Source Future Scheduled Test 2019-11-16 00:00:00 INFLUENZA VACCINE [code = INFLUENZA VACCINE] John Rosales Diagnostic Test Pending 2019-01-22 00:00:00 [UTP] EMG [code = [UTP] EMG] [facility] Future Scheduled Test 1997 00:00:00 Screening for abdulaziz gnant neoplasm of cervix (procedure) [code = 309733042] John Hidalgo t Future Appointment 2020-01-17 11:00:00 Grant ASHLEY [facility] Encounters Start Date/Time End Date/Time Encounter Type Admission Type Att[facility] Care Department Encounter ID Source 2018-05-09 08:34:00 Inpatient C SIMRAN FELIPE [facility] [place] [id number] [facility] 2019-06-18 10:30:00 2019-06-18 10:30:00 Appointment; ROSALINA RIVERO M.D. LUONG, AMBER, M.D. [facility] [id number] [facility] 2019-05-22 09:15:00 2019-05-22 09:15:00 Appointment; ROSALINA RIVERO M.D. LUONG, AMBER, M.D. [facility] Otorhinolaryngology - [facility] [id number] [facility] 2019-03-13 10:15:00 2019-03-13 10:15:00 Appointment; EVA HERRERA M.D. WORSHAM, JACOB, M.D. [facility] [id number] [facility] 2019-02-26 13:30:00 2019-02-26 13:30:00 Appointment; GREER CHILDRESS M.D. BROWN, KRISTIN, M.D. [facility] [id number] [facility] 2019-02-14 15:13:00 2019-02-14 15:13:00 Emergency E [facility] [id number] [facility] 2019-01-22 11:00:00 2019-01-22 11:00:00 Appointment; GREER CHILDRESS M.D. BROWN, KRISTIN, M.D. [facility] Neurology [facility] [id number] [facility] 2019-01-18 14:00:00 2019-01-18 14:00:00 Appointment; DAVID CARRIZALES M.D. DURGAM, ABHILASH, M.D. [facility] [id number] [facility] 2019-01-11 08:30:00 2019-01-11 08:30:00 Appointment; EVA HERRERA M.D. WORSHAM, JACOB, M.D. [facility] Orthopedics [facility] [id number] [facility] 2019-01-09 14:00:00 2019-01-09 14:00:00 Appointment; ARIELLE PRUETT M.D. GOWDA, SHAILA, M.D. [facility] Neurology [facility] [id number] [facility] 2017-10-30 08:23:54 2017-10-30 18:20:00 Outpatient Richard Felipe ybil [id number] Results Test Description Test Time Test Comments Results Result Comments Source [QH] HEPATITIS B SURFACE ANTIGEN W/REFL CONFIRM 2019-01-18 1 7:06:01 Test Item Hepatitis B Surface Antigen (test code = 5195-3) Negative Negat dorinda [facility][QLH] HEPATITIS C [id number] 17:06:01* Test Item Value Reference Range Interpretation Comments Hepatitis C Antibody (test code = 11867-8) Negative Negative [facility][Q] HIV AB, HIV 1/2, EIA, WITH [id number] 17:06:01* Test Item Value Reference Range Interpretation Comments HIV Ag/Ab 4th Gen (test code = 40236-2) Negative Negative HIV test results should be considered positive only when both the screening andthe confirmatory tests are positive. A negative confirmatory test in patientswith a positive screening test does not exclude HIV infection. If clincallywarranted, an HIV RNA quantitative test should be ordered. [facility]] [id number] 17:06:01* Test Item Value Reference Range Interpretation Comments RPR (test code = 06314-7) Non-Reactive Non-Reactive [facility][U] XRAY ELBOW MIN 3 VWS LEFT [id number] 08:45:00Images acquired, not reported on this accession number.[facility] [id number] 08:14:06* Test Item Value Reference Range Interpretation Comments Glucose (test code = 2345-7) 97 mg/dL 73-118 BUN (test code = 3094-0) 14 mg/dL 7-22 Calcium (test code = 47003-8) 9.2 mg/dL 8-10.3 Creatinine (test code = 2160-0) 0.9 mg/dL 0.5-0.9 Sodium (test code = 2951-2) 141 128- 145 mEq/L Potassium (test code = 2823-3) 3.8 3.6- 5.1 mEq/L Chloride (test code = 2075-0) 104 98- 108 mEq/L CO2 (test code = 8-9) 28 18- 33 mEq/L Anion gap (test code = 03825-9) 9@ANIO 7- 15 mEq/L [facility] with platelet and [id number] 08:14:06* Test Item Value Reference Range Interpretation Comments WBC (test code = 61477-2) 5.11 4.50- 11.00 k/uL RBC (test code = 71015-5) 4.25 m/uL 4.2-5.5 HGB (test code = 718-7) 11.2 g/dL 12-16 L HCT (test code = 4544-3) 36.5 % 37-47 L MCV (test code = 787-2) 85.9 fL 82-100 MCH (test code = 785-6) 36.4 pg 27-34 H MCHC (test code = 786-4) 30.7 g/dL 31-37 L RDW - SD (test code = 16365-4) 45.3 fL 37-55 MPV (test code = 66702-1) 9.1 fL 8.8-13.2 Platelet count (test code = 86901-1) 223 150- 400 k/uL Neutrophils (test code = 01934-8) 49.8 % 39-69 Lymphocytes (test code = 12316-7) 34.4 % 25-45 Monocytes (test code = 10153-8) 11.9 % 0-10 H Eosinophils (test code = 50211-5) 3.5 % 0-5 Basophils (test code = 42648-8) 0.4 % 0-1 Lab Interpretation (test code = 84495-5) Abnormal [place] MethodistProthrombin time with INR, [id number] 08:14:06* Test Item Value Reference Range Interpretation Comments POC prothrombin time (test code = 5964-2) 20.9 11.0- 14.5 s ec H POC INR (test code = 53893-4) 1.8 The International Normalized Ratio (INR) is a therapeutic monitoring tool for patients who are stable on oral vitamin K antagonist therapy. An INR of 2.0-3.0 is suggested for deep vein thrombosis/pul monary embolism. An INR of 2.5-3.5 (high dose) is suggested for some patients with mechanical heart valves) Lab Interpretation (test code = 40714-0) Abnormal [place] JamisonistXR Elbow 3+ Vw [id number] 03:22:18Hm Interface, Radiology Results - 01/06/2019 3:25 AM CDTEXAMINATION: XR ELBOW 3 VW LEFTCLINICAL HISTORY: painCOMPARISON: None.IMPRESSION:No fracture or dislocation. 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 No elbow effusion or significant soft tissue swelling.[facility]-[id number] MethodistXR Cervical Spine 2 Or 3 Vw 2019-01-06 03:21:36Hm Interface, Radiology Results Incoming 01/06/2019 3:24 AM CDTExamination: XR CERVICAL SPINE 2 OR 3 VWClinical History: left arm pain possible radiculopathyComparison: None.Findings:3 views of the cervical spine are obtained.No acute fracture or dislocation is seen.The disc spaces are within normal limits.Alignment of vertebral bodies are normal.IMPRESSION:1. No acute abnormality identified in cervical spine.[facility]-[id number] MethodistUs duplex venous upper [id number] 02:36:47Hm Interface, Radiology Results Incoming 01/06/2019 2:39 AM CDTEXAMINATION: US DUPLEX VENOUS UPPER EXTREMITY LEFTCLINICAL HISTORY: left arm pain please eval for DVTCOMPARISON: None.TECHNIQUE: Grayscale, color Doppler, and spectral waveform analysis of the left upper extremity deep venous system was performed.FINDINGS:The left internal jugular vein demonstrates normal flow and compressibility. The left subclavian, axillary, brachial, basilic, cephalic, and forearm veins reveal no evidence of thrombosis. The veins demonstrate normal Doppler flow and normal compressibility.IMPRESSION:Normal left upper extremity venous Doppler e xamination. 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 COMPARISON: Same date MRI brain. FINDINGS: The major intradural venous sinuses in the brain are patent. No evidence for a major lovelock of [place] proximal branch vessel occlusion. IMPRESSION: The major intradural venous sinuses in the brain are patent. Signed: Anna Martinez MDReport Verified Date/Time: 05/04/2018 01:00:22 Reading Location: [address] Reading Room , BRAIN, WITHOUT [id number] 23:52:00FINAL REPORT Exam: MRI brain without contrast. Comparison: None. 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 Findings: There is no intracranial mass, mass effect, extra-axial collection, hydrocephalus or herniation. There is no restr icted diffusion to suggest an acute infarct. There is no abnormality on suscepti bility sequences to suggest hemorrhage or hemosiderin deposition. The skull base flow-voids are seen in keeping with their patency. There is mild right ethmoid sinus mucosal inflammatory thickening. The mastoid air cells are clear. The orb its, sella and parasellar regions are unremarkable. The craniocervical junctio n is normal. Impression:No acute intracranial hemorrhage, hydrocephalus or mass effect. Mild right ethmoid sinus mucosal inflammatory disease. Signed: Citlalli Juan MDReport Verified Date/Time: 05/03/2018 23:52:28 Reading Location: [address] Reading Room ALYSIS W/ [id number] 21:43:00* Test Item Value Reference Range Interpretation Comments COLOR (BEAKER) (test code = 470) Yellow CLARITY (BEAKER) (test code = 469) Clear SPECIFIC GRAVITY UA (BEAKER) (test code = 468) 1.025 1.001-1 .035 PH UA (BEAKER) (test code = 467) 6.0 5.0-8.0 PROTEIN UA (BEAKER) (test code = 464) Negative Negative GLUCOSE UA (BEAKER) (test code = 365) Negative Negative KETONES UA (BEAKER) (test code = 371) Trace Negative A BILIRUBIN UA (BEAKER) (test code = 462) Negative Negative BLOOD UA (BEAKER) (test code = 461) Negative Negative NITRITE UA (BEAKER) (test code = 465) Negative Negative LEUKOCYTE ESTERASE UA (BEAKER) (test code = 466) Small Negat dorinda A UROBILINOGEN UA (BEAKER) (test code = 463) 0.2 mg/dL 0.2-1.0 BACTERIA (BEAKER) (test code = 517) Occasional RBC UA-MANUAL (BEAKER) (test code = 1659) <5 /HPF WBC UA-MANUAL (BEAKER) (test code = 1661) <5 /HPF SQUAMOUS EPITHELIAL MANUAL (BEAKER) (test code = 1663) 5-10 /HPF SOURCE(BEAKER) (test code = 2795) HEPATIC FUNCTION [id number] 21:37:00* Test Item Value Reference Range Interpretation Comments TOTAL PROTEIN (BEAKER) (test code = 770) 7.8 gm/dL 6.0-8.5 ALBUMIN (BEAKER) (test code = 1145) 3.9 g/dL 3.5-5.0 BILIRUBIN TOTAL (BEAKER) (test code = 377) 0.3 mg/dL 0.1-1.2 BILIRUBIN DIRECT (BEAKER) (test code = 706) 0.2 mg/dL 0.0-0.4 ALKALINE PHOSPHATASE (BEAKER) (test code = 346) 84 U/L 30-115 AST (SGOT) (BEAKER) (test code = 353) 17 U/L 5-40 ALT (SGPT) (BEAKER) (test code = 347) 16 U/L 5-50 BASIC METABOLIC [id number] 21:36:00* Test Item Value Reference Range Interpretation Comments SODIUM (BEAKER) (test code = 381) 135 meq/L 135-148 POTASSIUM (BEAKER) (test code = 379) 3.8 meq/L 3.6-5.5 CHLORIDE (BEAKER) (test code = 382) 106 meq/L 98-106 CO2 (BEAKER) (test code = 355) 26 meq/L 20-29 BLOOD UREA NITROGEN (BEAKER) (test code = 354) 10 mg/dL 10-26 CREATININE (BEAKER) (test code = 358) 0.70 mg/dL 0.50-1.20 GLUCOSE RANDOM (BEAKER) (test code = 652) 95 mg/dL 70-110 CALCIUM (BEAKER) (test code = 697) 8.4 mg/dL 8.5-10.5 L EGFR (BEAKER) (test code = 1092) 112 mL/min/1.73 sq m ESTIMATED GFR IS NOT ACCURATE CREATININE CLEARANCE IN PREDICTING GLOMERULAR FILTRATION RATE. ESTIMATED GFR IS NOT APPLICABLE FOR DIALYSIS PATIENTS. CBC W/PLT COUNT & AUTO [id number] 21:11:00* Test Item Value Reference Range Interpretation Comments WHITE BLOOD CELL COUNT (BEAKER) (test code = 775) 5.6 K/ L 4.0- 10.0 RED BLOOD CELL COUNT (BEAKER) (test code = 761) 4.45 M/ L 4.00-5 .00 HEMOGLOBIN (BEAKER) (test code = 410) 12.0 GM/DL 12.0-15.5 HEMATOCRIT (BEAKER) (test code = 411) 39.9 % 36.0-46.0 MEAN CORPUSCULAR VOLUME (BEAKER) (test code = 753) 89.7 fL 82. 0-99.0 MEAN CORPUSCULAR HEMOGLOBIN (BEAKER) (test code = 751) 27.0 pg 27.0-33.0 MEAN CORPUSCULAR HEMOGLOBIN CONC (BEAKER) (test code = 752) 30.1 GM/DL 32.0-36.0 L RED CELL DISTRIBUTION WIDTH (BEAKER) (test code = 412) 13.7 % 12.0-15.0 PLATELET COUNT (BEAKER) (test code = 756) 220 K/CU MM 150-430 MEAN PLATELET VOLUME (BEAKER) (test code = 754) 9.4 fL 6.0-11 .5 NUCLEATED RED BLOOD CELLS (BEAKER) (test code = 413) 0 /100 WBC 0 -0 NEUTROPHILS RELATIVE PERCENT (BEAKER) (test code = 429) 59 % LYMPHOCYTES RELATIVE PERCENT (BEAKER) (test code = 430) 25 % MONOCYTES RELATIVE PERCENT (BEAKER) (test code = 431) 13 % EOSINOPHILS RELATIVE PERCENT (BEAKER) (test code = 432) 3 % BASOPHILS RELATIVE PERCENT (BEAKER) (test code = 437) 0 % NEUTROPHILS ABSOLUTE COUNT (BEAKER) (test code = 670) 3.31 K/ L 1.80-8.00 LYMPHOCYTES ABSOLUTE COUNT (BEAKER) (test code = 414) 1.41 K/ L 1.48-4.50 L MONOCYTES ABSOLUTE COUNT (BEAKER) (test code = 415) 0.71 K/ L 0. 00-1.30 EOSINOPHILS ABSOLUTE COUNT (BEAKER) (test code = 416) 0.17 K/ L 0.00-0.50 BASOPHILS ABSOLUTE COUNT (BEAKER) (test code = 417) 0.02 K/ L 0. 00-0.20 IMMATURE GRANULOCYTES-RELATIVE PERCENT (BEAKER) (test code = 2801) 0 % 0-0 POCT-GLUCOSE [id number] 12:06:00* Test Item Value Reference Range Interpretation Comments POC-GLUCOSE METER (BEAKER) (test code = 1538) 109 mg/dL 70-[address] [address] POCT-GLUCOSE [id number] 06:55:00* Test Item Value Reference Range Interpretation Comments POC-GLUCOSE METER (BEAKER) (test code = 1538) 87 mg/dL 70-[address] [address] POCT-GLUCOSE [id number] 21:48:00* Test Item Value Reference Range Interpretation Comments POC-GLUCOSE METER (BEAKER) (test code = 1538) 91 mg/dL 70-[address] [address] VANCOMYCIN LEVEL, [id number] 09:40:00* Test Item Value Reference Range Interpretation Comments VANCOMYCIN TROUGH (BEAKER) (test code = 522) 14.9 ug/mL 10.0-20.0 COMPREHENSIVE METABOLIC [id number] 06:46:00* Test Item Value Reference Range Interpretation Comments TOTAL PROTEIN (BEAKER) (test code = 770) 7.1 gm/dL 6.0-8.5 ALBUMIN (BEAKER) (test code = 1145) 3.5 g/dL 3.5-5.0 ALKALINE PHOSPHATASE (BEAKER) (test code = 346) 73 U/L 30-115 BILIRUBIN TOTAL (BEAKER) (test code = 377) 0.3 mg/dL 0.1-1.2 SODIUM (BEAKER) (test code = 381) 139 meq/L 135-148 POTASSIUM (BEAKER) (test code = 379) 4.0 meq/L 3.6-5.5 CHLORIDE (BEAKER) (test code = 382) 104 meq/L 98-106 CO2 (BEAKER) (test code = 355) 26 meq/L 20-29 BLOOD UREA NITROGEN (BEAKER) (test code = 354) 17 mg/dL 10-26 CREATININE (BEAKER) (test code = 358) 0.69 mg/dL 0.50-1.20 GLUCOSE RANDOM (BEAKER) (test code = 652) 97 mg/dL 70-110 CALCIUM (BEAKER) (test code = 697) 9.0 mg/dL 8.5-10.5 AST (SGOT) (BEAKER) (test code = 353) 18 U/L 5-40 ALT (SGPT) (BEAKER) (test code = 347) 19 U/L 5-50 EGFR (BEAKER) (test code = 1092) 114 mL/min/1.73 sq m ESTIMATED GFR IS NOT ACCURATE CREATININE CLEARANCE IN PREDICTING GLOMERULAR FILTRATION RATE. ESTIMATED GFR IS NOT APPLICABLE FOR DIALYSIS PATIENTS. CBC W/PLT COUNT & AUTO [id number] 06:40:00* Test Item Value Reference Range Interpretation Comments WHITE BLOOD CELL COUNT (BEAKER) (test code = 775) 5.4 K/ L 4.0- 10.0 RED BLOOD CELL COUNT (BEAKER) (test code = 761) 3.76 M/ L 4.00-5 .00 L HEMOGLOBIN (BEAKER) (test code = 410) 10.5 GM/DL 12.0-15.0 L HEMATOCRIT (BEAKER) (test code = 411) 32.2 % 36.0-45.0 L MEAN CORPUSCULAR VOLUME (BEAKER) (test code = 753) 85.6 fL 82. 0-99.0 MEAN CORPUSCULAR HEMOGLOBIN (BEAKER) (test code = 751) 27.9 pg 27.0-33.0 MEAN CORPUSCULAR HEMOGLOBIN CONC (BEAKER) (test code = 752) 32.6 GM/DL 32.0-36.0 RED CELL DISTRIBUTION WIDTH (BEAKER) (test code = 412) 15.0 % 10.3-14.2 H PLATELET COUNT (BEAKER) (test code = 756) 190 K/CU MM 150-430 MEAN PLATELET VOLUME (BEAKER) (test code = 754) 7.4 fL 6.5-10 .5 NUCLEATED RED BLOOD CELLS (BEAKER) (test code = 413) 0 /100 WBC 0 -0 NEUTROPHILS RELATIVE PERCENT (BEAKER) (test code = 429) 48 % LYMPHOCYTES RELATIVE PERCENT (BEAKER) (test code = 430) 36 % MONOCYTES RELATIVE PERCENT (BEAKER) (test code = 431) 11 % EOSINOPHILS RELATIVE PERCENT (BEAKER) (test code = 432) 4 % BASOPHILS RELATIVE PERCENT (BEAKER) (test code = 437) 0 % NEUTROPHILS ABSOLUTE COUNT (BEAKER) (test code = 670) 2.60 K/ L 1.80-8.00 LYMPHOCYTES ABSOLUTE COUNT (BEAKER) (test code = 414) 1.90 K/ L 1.48-4.50 MONOCYTES ABSOLUTE COUNT (BEAKER) (test code = 415) 0.60 K/ L 0. 00-1.30 EOSINOPHILS ABSOLUTE COUNT (BEAKER) (test code = 416) 0.20 K/ L 0.00-0.50 BASOPHILS ABSOLUTE COUNT (BEAKER) (test code = 417) 0.00 K/ L 0. 00-0.20 [id number] 06:37:00* Test Item Value Reference Range Interpretation Comments MAGNESIUM (BEAKER) (test code = 627) 1.6 mg/dL 1.5-3.0 RAD, SHOULDER, 1 VIEW, [id number] 06:11:00Reason for exam:->painFINAL REPORT RAD, SHOULDER, 1 VIEW, LEFT INDICATION: pain COMPARISON: July 04, 2009 TECHNIQUE: Frontal views of the left shoulder in internal and external rotation. IMPRESSION: No fracture or malalignment is identified in these limited frontal views. Full shoulder series or CT examination may be obtained if there is persistent clinical concern. Signed: JR Tenorio Rob ert MDRmt. [facility] Verified Date/Time: 11/26/2017 06:11:03 Reading Location: [address] Body Reading Room REHENSIVE METABOLIC [id number] 06:56:00* Test Item Value Reference Range Interpretation Comments TOTAL PROTEIN (BEAKER) (test code = 770) 6.7 gm/dL 6.0-8.5 ALBUMIN (BEAKER) (test code = 1145) 3.4 g/dL 3.5-5.0 L ALKALINE PHOSPHATASE (BEAKER) (test code = 346) 73 U/L 30-115 BILIRUBIN TOTAL (BEAKER) (test code = 377) 0.2 mg/dL 0.1-1.2 SODIUM (BEAKER) (test code = 381) 138 meq/L 135-148 POTASSIUM (BEAKER) (test code = 379) 3.9 meq/L 3.6-5.5 CHLORIDE (BEAKER) (test code = 382) 105 meq/L 98-106 CO2 (BEAKER) (test code = 355) 25 meq/L 20-29 BLOOD UREA NITROGEN (BEAKER) (test code = 354) 13 mg/dL 10-26 CREATININE (BEAKER) (test code = 358) 0.65 mg/dL 0.50-1.20 GLUCOSE RANDOM (BEAKER) (test code = 652) 98 mg/dL 70-110 CALCIUM (BEAKER) (test code = 697) 8.9 mg/dL 8.5-10.5 AST (SGOT) (BEAKER) (test code = 353) 15 U/L 5-40 ALT (SGPT) (BEAKER) (test code = 347) 15 U/L 5-50 EGFR (BEAKER) (test code = 1092) 122 mL/min/1.73 sq m ESTIMATED GFR IS NOT ACCURATE CREATININE CLEARANCE IN PREDICTING GLOMERULAR FILTRATION RATE. ESTIMATED GFR IS NOT APPLICABLE FOR DIALYSIS PATIENTS. PT/[id number] 06:55:00* Test Item Value Reference Range Interpretation Comments PROTIME (BEAKER) (test code = 759) 10.4 sec 9.3-12.0 INR (BEAKER) (test code = 370) 1.0 <=5.9 PARTIAL THROMBOPLASTIN TIME (BEAKER) (test code = 760) 26.4 sec 23.0-35.0 RECOMMENDED COUMADIN/WARFARIN INR THERAPY RANGESSTANDARD DOSE: 2.0 - 3.0 Inclu mason: PROPHYLAXIS for venous thrombosis, systemic embolization; TREATMENT for roderick ous thrombosis and/or pulmonary embolus.HIGH RISK: Target INR is 2.5-3.5 for pat ients with mechanical heart valves.Final Information (Auto Output)Final Informat ion (Auto Output)Final Information (Auto Output)PROTHROMBIN TIME/[id number] 06:55:00* Test Item Value Reference Range Interpretation Comments PROTIME (BEAKER) (test code = 759) 10.4 seconds 9.3-12.0 INR (BEAKER) (test code = 370) 1.0 <=5.9 RECOMMENDED COUMADIN/WARFARIN INR THERAPY RANGESSTANDARD DOSE: 2.0 - 3.0 Inclu mason: PROPHYLAXIS for venous thrombosis, systemic embolization; TREATMENT for roderick ous thrombosis and/or pulmonary embolus.HIGH RISK: Target INR is 2.5-3.5 for pat ients with mechanical heart valves.LIPID [id number] 06:55:00* Test Item Value Reference Range Interpretation Comments TRIGLYCERIDES (BEAKER) (test code = 540) 47 mg/dL CHOLESTEROL (BEAKER) (test code = 631) 121 mg/dL HDL CHOLESTEROL (BEAKER) (test code = 976) 49 mg/dL LDL CHOLESTEROL CALCULATED (BEAKER) (test code = 633) 63 mg/dL Triglyceride Reference Range: Low Risk <150 Borderline 150-199 High Risk 200-499 Very High Risk >=500Cholesterol Reference Range: Low Risk <200 Borderline 200-239 High Risk >240HDL Cholesterol Reference Range: Low Risk >=60 High Risk <40LDL Cholesterol Reference Range: Optimal <100 Near Optimal 100-129 Borderline 130-159 High 160-189 Very High >=190 [id number] 06:47:00* Test Item Value Reference Range Interpretation Comments MAGNESIUM (BEAKER) (test code = 627) 1.6 mg/dL 1.5-3.0 HEMOGLOBIN [id number] 06:42:00* Test Item Value Reference Range Interpretation Comments HEMOGLOBIN A1C (BEAKER) (test code = 368) 5.2 % 4.3-6.1 CBC W/PLT COUNT & AUTO [id number] 06:35:00* Test Item Value Reference Range Interpretation Comments WHITE BLOOD CELL COUNT (BEAKER) (test code = 775) 5.1 K/ L 4.0- 10.0 RED BLOOD CELL COUNT (BEAKER) (test code = 761) 3.73 M/ L 4.00-5 .00 L HEMOGLOBIN (BEAKER) (test code = 410) 10.3 GM/DL 12.0-15.0 L HEMATOCRIT (BEAKER) (test code = 411) 31.9 % 36.0-45.0 L MEAN CORPUSCULAR VOLUME (BEAKER) (test code = 753) 85.7 fL 82. 0-99.0 MEAN CORPUSCULAR HEMOGLOBIN (BEAKER) (test code = 751) 27.6 pg 27.0-33.0 MEAN CORPUSCULAR HEMOGLOBIN CONC (BEAKER) (test code = 752) 32.3 GM/DL 32.0-36.0 RED CELL DISTRIBUTION WIDTH (BEAKER) (test code = 412) 15.3 % 10.3-14.2 H PLATELET COUNT (BEAKER) (test code = 756) 182 K/CU MM 150-430 MEAN PLATELET VOLUME (BEAKER) (test code = 754) 7.3 fL 6.5-10 .5 NUCLEATED RED BLOOD CELLS (BEAKER) (test code = 413) 0 /100 WBC 0 -0 NEUTROPHILS RELATIVE PERCENT (BEAKER) (test code = 429) 45 % LYMPHOCYTES RELATIVE PERCENT (BEAKER) (test code = 430) 40 % MONOCYTES RELATIVE PERCENT (BEAKER) (test code = 431) 12 % EOSINOPHILS RELATIVE PERCENT (BEAKER) (test code = 432) 3 % BASOPHILS RELATIVE PERCENT (BEAKER) (test code = 437) 1 % NEUTROPHILS ABSOLUTE COUNT (BEAKER) (test code = 670) 2.30 K/ L 1.80-8.00 LYMPHOCYTES ABSOLUTE COUNT (BEAKER) (test code = 414) 2.10 K/ L 1.48-4.50 MONOCYTES ABSOLUTE COUNT (BEAKER) (test code = 415) 0.60 K/ L 0. 00-1.30 EOSINOPHILS ABSOLUTE COUNT (BEAKER) (test code = 416) 0.10 K/ L 0.00-0.50 BASOPHILS ABSOLUTE COUNT (BEAKER) (test code = 417) 0.00 K/ L 0. 00-0.20 BASIC METABOLIC [id number] 08:34:00* Test Item Value Reference Range Interpretation Comments SODIUM (BEAKER) (test code = 381) 136 meq/L 135-148 POTASSIUM (BEAKER) (test code = 379) 3.8 meq/L 3.6-5.5 CHLORIDE (BEAKER) (test code = 382) 105 meq/L 98-106 CO2 (BEAKER) (test code = 355) 25 meq/L 20-29 BLOOD UREA NITROGEN (BEAKER) (test code = 354) 13 mg/dL 10-26 CREATININE (BEAKER) (test code = 358) 0.65 mg/dL 0.50-1.20 GLUCOSE RANDOM (BEAKER) (test code = 652) 110 mg/dL 70-110 CALCIUM (BEAKER) (test code = 697) 8.8 mg/dL 8.5-10.5 EGFR (BEAKER) (test code = 1092) 122 mL/min/1.73 sq m ESTIMATED GFR IS NOT ACCURATE CREATININE CLEARANCE IN PREDICTING GLOMERULAR FILTRATION RATE. ESTIMATED GFR IS NOT APPLICABLE FOR DIALYSIS PATIENTS. [id number] 08:33:00* Test Item Value Reference Range Interpretation Comments PHOSPHORUS (IKER) (test code = 604) 3.9 mg/dL 2.5-4.5 [id number] 08:28:00* Test Item Value Reference Range Interpretation Comments MAGNESIUM (IKER) (test code = 627) 1.7 mg/dL 1.5-3.0 CT, EXTREMITY, LOWER, WITH CONTRAST, [id number] 19:58:00FINAL REPORT CLINICAL HISTORY: Right thigh cellulitis, concern for underlying abscess COMPARISON: None. FINDINGS: Multiple axial images of the right lower extremity were performed from the iliac bone to the tibial plateau after the uncomplicated administration of IV contrast. Coronal and sagittal reformats were created. This exam was performed according to our departmental dose-optimization program, which includes automated exposure control, adjustment of the mA and/or kV according to patient size and/or use of the iterative recon struction technique. There is a focus of skin thickening with subjacent subcutan eous fat stranding in the medial upper to mid right leg which could reflect a ce llulitis referred to in the patient history. There is no underlying organized fl uid collection to suggest abscess. No soft tissue gas is present. There is minim al, scattered stranding/disorganized fluid density in the subcutaneous fat of th e right lateral leg. This is nonspecific but probably of no clinical significanc e. There is no acute fracture, malalignment or destructive bony lesion. No radio paque foreign body is present. The visualized musculature and vasculature of the right leg are unremarkable. There is mild degenerative right hip joint space lo ss. No significant generative changes are noted in the right knee. The uterus is absent. The visualized pelvic viscera is otherwise unremarkable. IMPRESSION: Fo lois skin thickening and subjacent subcutaneous fat stranding in the medial right upper thigh, probably reflects cellulitis given the patient's history. There is no organized fluid collection to suggest drainable abscess. Signed: Se nelda Spencer MDReport Verified Date/Time: 11/23/2017 19:58:50 Reading Location: [address] Reading Room OMYCIN LEVEL, [id number] 18:10:00* Test Item Value Reference Range Interpretation Comments VANCOMYCIN TROUGH (BEAKER) (test code = 522) 5.2 ug/mL 10.0-20.0 L PT/[id number] 06:22:00* Test Item Value Reference Range Interpretation Comments PROTIME (BEAKER) (test code = 759) 13.2 sec 9.3-12.0 H INR (BEAKER) (test code = 370) 1.2 <=5.9 PARTIAL THROMBOPLASTIN TIME (BEAKER) (test code = 760) 38.0 sec 23.0-35.0 H RECOMMENDED COUMADIN/WARFARIN INR THERAPY RANGESSTANDARD DOSE: 2.0 - 3.0 Inclu mason: PROPHYLAXIS for venous thrombosis, systemic embolization; TREATMENT for roderick ous thrombosis and/or pulmonary embolus.HIGH RISK: Target INR is 2.5-3.5 for pat ients with mechanical heart valves.Final Information (Auto Output)Final Informat ion (Auto Output)Final Information (Auto Output)BASIC METABOLIC [id number] 06:19:00* Test Item Value Reference Range Interpretation Comments SODIUM (BEAKER) (test code = 381) 136 meq/L 135-148 POTASSIUM (BEAKER) (test code = 379) 4.2 meq/L 3.6-5.5 CHLORIDE (BEAKER) (test code = 382) 106 meq/L 98-106 CO2 (BEAKER) (test code = 355) 24 meq/L 20-29 BLOOD UREA NITROGEN (BEAKER) (test code = 354) 12 mg/dL 10-26 CREATININE (BEAKER) (test code = 358) 0.70 mg/dL 0.50-1.20 GLUCOSE RANDOM (BEAKER) (test code = 652) 100 mg/dL 70-110 CALCIUM (BEAKER) (test code = 697) 8.7 mg/dL 8.5-10.5 EGFR (BEAKER) (test code = 1092) 112 mL/min/1.73 sq m ESTIMATED GFR IS NOT ACCURATE CREATININE CLEARANCE IN PREDICTING GLOMERULAR FILTRATION RATE. ESTIMATED GFR IS NOT APPLICABLE FOR DIALYSIS PATIENTS. [id number] 06:18:00* Test Item Value Reference Range Interpretation Comments PHOSPHORUS (BEAKER) (test code = 604) 3.1 mg/dL 2.5-4.5 [id number] 06:13:00* Test Item Value Reference Range Interpretation Comments MAGNESIUM (BEAKER) (test code = 627) 1.9 mg/dL 1.5-3.0 CBC W/PLT COUNT & AUTO [id number] 07:23:00* Test Item Value Reference Range Interpretation Comments WHITE BLOOD CELL COUNT (BEAKER) (test code = 775) 4.4 K/ L 4.0- 10.0 RED BLOOD CELL COUNT (BEAKER) (test code = 761) 4.35 M/ L 4.00-5 .00 HEMOGLOBIN (BEAKER) (test code = 410) 12.0 GM/DL 12.0-15.0 HEMATOCRIT (BEAKER) (test code = 411) 37.1 % 36.0-45.0 MEAN CORPUSCULAR VOLUME (BEAKER) (test code = 753) 85.2 fL 82. 0-99.0 MEAN CORPUSCULAR HEMOGLOBIN (BEAKER) (test code = 751) 27.6 pg 27.0-33.0 MEAN CORPUSCULAR HEMOGLOBIN CONC (BEAKER) (test code = 752) 32.4 GM/DL 32.0-36.0 RED CELL DISTRIBUTION WIDTH (BEAKER) (test code = 412) 15.0 % 10.3-14.2 H PLATELET COUNT (BEAKER) (test code = 756) 205 K/CU MM 150-430 MEAN PLATELET VOLUME (BEAKER) (test code = 754) 7.6 fL 6.5-10 .5 NUCLEATED RED BLOOD CELLS (BEAKER) (test code = 413) 0 /100 WBC 0 -0 (MANUAL DIFFERENTIAL)2017-11-22 07:23:00* Test Item Value Reference Range Interpretation Comments NEUTROPHILS - REL (DIFF) (BEAKER) (test code = 1359) 44 % LYMPHOCYTES - REL (DIFF) (BEAKER) (test code = 1360) 46 % MONOCYTES - REL (DIFF) (BEAKER) (test code = 1361) 7 % EOSINOPHILS - REL (DIFF) (BEAKER) (test code = 1362) 3 % NEUTROPHILS - ABS (DIFF) (BEAKER) (test code = 1365) 1.94 K/ L 1 .80-8.00 LYMPHOCYTES - ABS (DIFF) (BEAKER) (test code = 1366) 2.02 K/ L 1 .48-4.50 MONOCYTES - ABS (DIFF) (BEAKER) (test code = 1367) 0.31 K/ L 0.0 0-1.30 EOSINOPHILS - ABS (DIFF) (BEAKER) (test code = 1368) 0.13 K/ L 0 .00-0.50 TOTAL COUNTED (BEAKER) (test code = 1351) 100 WBC MORPHOLOGY (BEAKER) (test code = 487) Normal PLT MORPHOLOGY (BEAKER) (test code = 486) Normal RBC MORPHOLOGY (BEAKER) (test code = 762) Normal BASIC METABOLIC [id number] 04:57:00* Test Item Value Reference Range Interpretation Comments SODIUM (BEAKER) (test code = 381) 136 meq/L 135-148 POTASSIUM (BEAKER) (test code = 379) 3.8 meq/L 3.6-5.5 CHLORIDE (BEAKER) (test code = 382) 104 meq/L 98-106 CO2 (BEAKER) (test code = 355) 25 meq/L 20-29 BLOOD UREA NITROGEN (BEAKER) (test code = 354) 11 mg/dL 10-26 CREATININE (BEAKER) (test code = 358) 0.74 mg/dL 0.50-1.20 GLUCOSE RANDOM (BEAKER) (test code = 652) 110 mg/dL 70-110 CALCIUM (BEAKER) (test code = 697) 8.7 mg/dL 8.5-10.5 EGFR (BEAKER) (test code = 1092) 105 mL/min/1.73 sq m ESTIMATED GFR IS NOT ACCURATE CREATININE CLEARANCE IN PREDICTING GLOMERULAR FILTRATION RATE. ESTIMATED GFR IS NOT APPLICABLE FOR DIALYSIS PATIENTS. [id number] 04:56:00* Test Item Value Reference Range Interpretation Comments PHOSPHORUS (BEAKER) (test code = 604) 3.3 mg/dL 2.5-4.5 PT/[id number] 04:53:00* Test Item Value Reference Range Interpretation Comments PROTIME (BEAKER) (test code = 759) 11.4 sec 9.3-12.0 INR (BEAKER) (test code = 370) 1.1 <=5.9 PARTIAL THROMBOPLASTIN TIME (BEAKER) (test code = 760) 28.3 sec 23.0-35.0 RECOMMENDED COUMADIN/WARFARIN INR THERAPY RANGESSTANDARD DOSE: 2.0 - 3.0 Inclu mason: PROPHYLAXIS for venous thrombosis, systemic embolization; TREATMENT for roderick ous thrombosis and/or pulmonary embolus.HIGH RISK: Target INR is 2.5-3.5 for pat ients with mechanical heart valves.Final Information (Auto Output)Final Informat ion (Auto Output)Final Information (Auto Output)PROTHROMBIN [id number] 04:53:00* Test Item Value Reference Range Interpretation Comments PROTIME (IKER) (test code = 759) 11.4 seconds 9.3-12.0 INR (BEAKER) (test code = 370) 1.1 <=5.9 RECOMMENDED COUMADIN/WARFARIN INR THERAPY RANGESSTANDARD DOSE: 2.0 - 3.0 Inclu mason: PROPHYLAXIS for venous thrombosis, systemic embolization; TREATMENT for roderick ous thrombosis and/or pulmonary embolus.HIGH RISK: Target INR is 2.5-3.5 for pat ients with mechanical heart valves.[id number] 04:51:00* Test Item Value Reference Range Interpretation Comments MAGNESIUM (IKER) (test code = 627) 1.9 mg/dL 1.5-3.0
--- OUTSIDE RECORDS SUMMARY | 2019-09-26 07:27 | XMS REPORT | Continuity of Care Document ---
Author Author Indu EyeSpotFREEMAN [facility] [employer] inTouch Information [employer] Address Unknown Phone Unavailable Care Team Providers Care Machine Installer Name Role Phone [facility] Information Exchange Unavailable Un available Problems Problem Status Onset Date Classification Date Reported Comments Source Plantar fascial fibromatosis 10/30/2017 11/01/2017 [facility] Cellulitis (morphologic abnormality) Resolved 04/17/2016 Problem 11/01/2017 abdomen and bottom of legs. [facility] Pulmonary embolism (disorder) Active 04/17/2012 Problem 11/01/2017 Pt reports > 6 PE, cause unknown per pt. 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 Hysterectomy done 2015 denies any problems since procedure [facility] Anxiety (finding) Active Problem 11/01/2017 [facility] Swelling of first metatarsophalangeal dony int of hallux (disorder) Active Prob ky 11/01/2017 [facility] Foot pain (finding) Active Problem 11/01/2017 [facility] Sleep apnea (finding) Active Problem 11/01/2017 does not use cpap machine [facility] Medications Medication Details Route Status Patient Instructions Ordering Provider Order Date Source Dilaudid 0.5 mg = 0.5 mL, Inje ction, IV Push, q10min PRN for pain severe (7-10), first dose 10/30/17 16:15:00 CDT No Longer Active 10/30/2017 [facility] Diphenhydramine 25 mg = 0.5 mL , Injection, IV Push, Once PRN for itching, first dose 10/30/17 16:15:00 CDT No Longer Active 10/30/2017 [facility] Levalbuterol 0.21 MG/ML Inhalant Solution [Xopenex] 0.63 mg = 3 mL, Soln, NEB, Once PRN for wheezing, first dose 10/30/17 16:15:00 CDT No Longer Active 10/30/2017 [facility] Demerol HCl 12.5 mg = 0.5 mL, Injection, IV Push, Once PRN for shivers, first dose 10/30/17 16:15:00 CDT No Longer Active 10/30/2017 [facility] Ondansetron 4 mg = 2 mL, Injec tion, IV Push, q15min PRN for nausea, order duration: 2 doses, first dose 10/30/17 16:15:00 CDT, stop date Limited # of times No Longer Active 10/30/2017 [facility] Promethazine 12.5 mg = 0.5 mL, Injection, IM, Once PRN for vomiting, first dose 10/30/17 16:15:00 CDT No Longer Active 10/30/2017 [facility] Saline Lock Flush 10 mL, Soln, IV Push, As Indicated PRN for flush, first dose 10/30/17 16:15:00 CDT No Longer Active 10/30/2017 [facility] LR 1,000 mL 1,000 mL, IV, 75 m L/hr, start date 10/30/17 16:15:00 CDT No Longer Active 10/30/2017 [facility] Lactated Ringers Injection IV, start date 10/30/17 16:10:00 CDT, stop date 10/30/17 16:10:00 CDT Inactive 10/30/2017 [facility] ketorolac 30 mg = 1 mL, Inject ion, IV, Once, first dose 10/30/17 16:02:00 CDT, stop date 10/30/17 16:02:00 CDT Inactive 10/30/2017 [facility] ondansetron 4 mg = 2 mL, Injec tion, IV, Once, first dose 10/30/17 15:59:00 CDT, stop date 10/30/17 15:59:00 CDT Inactive 10/30/2017 [facility] fentaNYL 50 mcg = 1 mL, Inject ion, IV, Once, first dose 10/30/17 15:58:00 CDT, stop date 10/30/17 15:58:00 CDT Inactive 10/30/2017 [facility] fentaNYL 50 mcg = 1 mL, Inject ion, IV, Once, first dose 10/30/17 15:46:00 CDT, stop date 10/30/17 15:46:00 CDT Inactive 10/30/2017 [facility] Misc Medication 1,000 mL, Soln -IV, IV, Once, first dose 10/30/17 15:15:00 CDT, stop date 10/30/17 15:15:00 CDT Inactive 10/30/2017 [facility] ceFAZolin 1 gm, Soln-IV, IV Pi ggyback, Once, first dose 10/30/17 14:53:00 CDT, stop date 10/30/17 14:53:00 CDT Inactive 10/30/2017 [facility] fentaNYL 50 mcg = 1 mL, Inject ion, IV, Once, first dose 10/30/17 14:51:00 CDT, stop date 10/30/17 14:51:00 CDT Inactive 10/30/2017 [facility] dexamethasone 8 mg = 2 mL, Inj ection, IV, Once, first dose 10/30/17 14:47:00 CDT, stop date 10/30/17 14:47:00 CDT Inactive 10/30/2017 [facility] propofol 150 mg = 15 mL, Emuls ion, IV, Once, first dose 10/30/17 14:38:00 CDT, stop date 10/30/17 14:38:00 CDT Inactive 10/30/2017 [facility] lidocaine 5 mL, Injection, IV, Once, first dose 10/30/17 14:37:00 CDT, stop date 10/30/17 14:37:00 CDT Inactive 10/30/2017 [facility] midazolam 2 mg = 2 mL, Injecti on, IV, Once, first dose 10/30/17 14:36:00 CDT, stop date 10/30/17 14:36:00 CDT Inactive 10/30/2017 [facility] fentaNYL 100 mcg = 2 mL, Injec tion, IV, Once, first dose 10/30/17 14:35:00 CDT, stop date 10/30/17 14:35:00 CDT Inactive 10/30/2017 [facility] Cephalexin 500 MG Oral Capsule [Keflex] 500 mg = 1 caps, Oral, q6hr, 0 Refill(s) Activ e 10/30/2017 [facility] Cefazolin 120 kg, Prophylaxis Inactive 10/30/2017 [facility] LR 1,000 mL 1,000 mL, IV, 30 m L/hr, start date 10/30/17 12:46:00 CDT No Longer Active 10/30/2017 [facility] Lidocaine 2% 0.2 mL IV Start [[place]] 0.2 mL, Injection, Subcutaneous, Once PRN for other (see comment), first dose 10/30/17 12:46:00 CDT No Longer Active 10/30/2017 [facility] 1 ML Enoxaparin sodium 100 MG/ML Prefill ed Syringe [Lovenox] 100 mg = 1 mL, Subcutaneous, q12hr, # 10 EA, 0 Refill(s), Blood clots Active 10/27/2017 [facility] tramadol hydrochloride 50 MG Oral Tablet mg tabs, Oral, q4hr, 0 Refill(s), pain Active 10/26/2017 [facility] clonazePAM 1 mg oral tablet 1 mg = 1 tabs, Oral, qAM, 0 Refill(s), anxiety Active 10/26/2017 [facility] rivaroxaban 20 MG Oral Tablet [Xarelto] mg tabs, Oral, qPM, 0 Refill(s), PE Active 10/26/2017 [facility] Allergies, Adverse Reactions, Alerts Substance Category Reaction Severity Reaction type Status Date Reported Comments Source Augmentin Assertion Hives, Itching Moderate Drug allergy Active [facility] Cipro Assertion Shortness of breath Moderate Drug allergy Active [facility] Wellbutrin Assertion Angioedema (disorder) Moderate Drug allergy Active [facility] Immunizations No Data Provided for This Section Results No Data Provided for This Section Pathology Reports No Data Provided for This Section Diagnostic Reports No Data Provided for This Section Consultation Notes No Data Provided for This Section Discharge Summaries No Data Provided for This Section History and Physicals No Data Provided for This Section Vital Signs Vital Sign Value Date Comments Source Peripheral Pulse Rate 78 10/30/2017 [facility] Respitory Rate 18 10/30/2017 [facility] Respitory Rate 16 10/30/2017 [facility] Systolic (mm Hg) 128 10/30/2017 [facility] Diastolic (mm Hg) 76 10/30/2017 [facility] Heart Rate 53 10/30/2017 [facility] Systolic (mm Hg) 134 10/30/2017 [facility] Diastolic (mm Hg) 71 10/30/2017 [facility] Respitory Rate 16 10/30/2017 [facility] Heart Rate 60 10/30/2017 [facility] Systolic (mm Hg) 137 10/30/2017 [facility] Diastolic (mm Hg) 79 10/30/2017 [facility] Heart Rate 59 10/30/2017 [facility] Temperature Oral (F) 36.9 [place] 10/30/2017 [facility] Weight Measured 122 10/30/2017 [facility] Height 163.8 cm 10/30/2017 [facility] Peripheral Pulse Rate 71 10/30/2017 [facility] Temperature Oral (F) 36.9 [place] 10/30/2017 [facility] Weight Measured 122 10/30/2017 [facility] Peripheral Pulse Rate 71 10/30/2017 [facility] Temperature Oral (F) 36.9 [place] 10/30/2017 [facility] Height 163.8 cm 10/30/2017 [facility] Temperature Oral (F) 36.9 [place] 10/30/2017 [facility] Weight Measured 122 10/30/2017 [facility] Height 163.8 cm 10/30/2017 [facility] Encounters Location Location Details Encounter Type Encounter Number Reason For Visit Attending Provider ADM Date DC Date Status Source [facility] Ou tpatient [id number] Aubrie Felipe 10/30/2017 10/30/2017 Active [facility] [id number] Aubrie Felipe 10/30/2017 10/30/2017 [facility] Procedures Procedure Code Date Perfomer Comments Source BUNIONECTOMY; W/SESAMOIDECTOMY; W/PROXIM AL PHALANX OSTEOTOMY [id number] (Left)<sup>1</sup> 10/30/2017 auto-populated from document ed surgical case [facility] CORRECTION HALLUX VALGUS W/SESAMOIDECTOM Y ANY METHOD [id number] (Left)<sup>2</sup> 10/30/2017 auto-populated from document ed surgical case [facility] FASCIECTOMY PLANTAR FACIA PARTIAL [id number] (Left)<sup>3</sup> 10/30/2017 auto-populated from documented surgical case [facility] Partial hysterectomy<sup>4</sup> [id number] 04/17/2015 has ovaries [facility] Cone biopsy of cervix [id number] 04/17/2009 [facility] Dilation and curettage [id number] [facility] Laparoscopy [id number] [facility] Assessment and Plan No Data Provided for This Section Plan of Care No Data Provided for This Section Social History Social History Date Source Social History TypeResponse Smoking Status Former smoker1 1quit 15 yrs ago 10/26/2017 [facility] Family History No Data Provided for This Section Advance Directives No Data Provided for This Section Functional Status No Data Provided for This Section
--- OUTSIDE RECORDS SUMMARY | 2019-09-26 07:27 | XMS REPORT | Summary of Care ---
Author Author MAT Burns, FREEMAN SHANKAR Organization Unknown Address Unknown Phone Unavailable Care Team Providers Care Edge Glue Machine Tender Name Role Phone MAT Burns, ROSALINA Unavailable Unavailable SOFIE CALLOWAY, DION Unavailable Unavailable SEBLE CALLOWAY, ARIELLE Unavailable Unavailable SHARON CALLOWAY, EVA Gay Unavailable Unavailable FIOR CALLOWAY, GREER Butler Unavailable Unavailable JULIAN CALLOWAY UT, HEATHER Goldberg Unavailable Unavailable AIDA CALLOWAY, COLEMAN [...] 4 TIMES DAILY * Refills: 0 Active [place] TABS * Refills: 0 Active Fluticasone Propionate 50 MCG/ACT Nasal Suspension USE 1 SPRAY IN EACH NOSTRIL TWICE DAILY. * Quantity: 1 Refills: 3 MAT Burns, ROSALINA * Start : 22-May-2019 Active 9.9 ML Bottle Allergies and Adverse Reactions Name Dates Details amoxicillin (Allergy) Status: Active Augmentin TABS (Allergy) Status: Active Cipro TABS (Allergy) Status: Active Wellbutrin TABS (Allergy) Status: Active Past Medical History Name Dates Details History of Occipital neuralgia (723.8, M 54.81) Status: Resolved History of Pulmonary Embolism (V12.55) Status: Resolved Procedures Procedure Dates Details CT Sinus wo contrast [id number] Date: 22-May-2019 History of Laparoscopy (Diagnostic) Comp leted History [...] smoker Vital Signs Date Test Result Details 22-May-20199:29 BP Systolic 157 mm[Hg] Status: Comments: Lo cation: LUE; Position: Sitting BP Diastolic 95 mm[Hg] Status: Comments: Lo cation: LUE; Position: Sitting Height 64.5 in Status: Weight 280 lb Status: Body Mass Index Calculated 47.32 kg/m2 Status: Body Surface Area Calculated 2.27 m2 Status: Temperature 98.9 f Status: Comments: Me thod: Oral Heart Rate 86 /min Status: Results Date Description Value Details Results not documented Plan of Care Name Dates Details Planned Observations Planned Goals not documented Planned Encounters [facility] Referral Appointment; ROSALINA RIVERO M.D. On: 18-Jun-2019 10:30 Appointment; DION CARRIZALES M.D. On: 17-Jan-2020 11:00 Interventions Provided Medication Changes* Fluticasone Propionate 50 MCG/ACT Nasal Suspension - Start Labs/Procedures/Imaging* CT Sinus wo contrast [id number]; To Be Done: 22 May 2019 Follow-ups/Referrals* Follow-up visit in 3 weeks; Done: 22 May 2019 Plan* 1. nasal endoscopy * 2. Start saline irrigations daily * 3. Refer to [facility] to discuss management of dentition * 4. Start fluticasone saline irrigations 1 spray 2x day. Rx placed * 5. CT sinus at next clinic visit * 6. RTC 3-4 weeks Instructions Name Dates Details Instructions not documented [...]
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
--- OUTSIDE RECORDS SUMMARY | 2019-09-26 07:27 | XMS REPORT | Summary of Care ---
Author Author [facility] Organization [facility] Address Unknown Phone Unavailable Encounter [facility] [address] Date(s): 10/30/17 - 10/30/17 [facility] [id number] [place], [place] [address] Discharge Diagnosis: Plantar fascial fibromatosis Discharge Disposition: Discharged to Home or Self Care Attending Physician: Aubrie Felipe DPM Admitting Physician: Aubrie Felipe DPM Vital Signs 1 2 3 Most recent to oldest [Reference Range]: 36.9 DegC (10/30/17 1:20 PM) 36.9 DegC (10/30/17 1:14 PM) 36.9 DegC (10/30/17 1:00 PM) Temperature Oral [35.8-37.3 DegC] 36.9 DegC (10/30/17 4:00 PM) Temperature Temporal Artery [36.3-37.8 DegC] 98.42 (10/30/17 4:00 PM) Temperature Temporal Fahrenheit 78 bpm (10/30/17 6:20 PM) 71 bpm (10/30/17 1:20 PM) 71 bpm (10/30/17 1:14 PM) Peripheral Pulse Rate [55-105 bpm] 53 bpm *LOW* (10/30/17 5:10 PM) 60 bpm (10/30/17 5:00 PM) 59 bpm *LOW* (10/30/17 4:50 PM) Heart Rate Monitored [60-100 bpm] 18 (10/30/17 6:20 PM) 16 (10/30/17 5:10 PM) 16 (10/30/17 5:00 PM) Respiratory Rate [12-20] 98 % (10/30/17 6:20 PM) 97 % (10/30/17 5:10 PM) 97 % (10/30/17 5:00 PM) SpO2 [90-100 %] 128/76 mmHg *HI* (10/30/17 5:10 PM) 134/71 mmHg *HI* (10/30/17 5:00 PM) 137/79 mmHg *HI* (10/30/17 4:50 PM) Blood Pressure [110-120/65-85 mmHg] 93.3 mmHg (10/30/17 5:10 PM) 92 mmHg (10/30/17 5:00 PM) 98.3 mmHg (10/30/17 4:50 PM) Mean Arterial Pressure, Cuff 163.8 cm (10/30/17 1:20 PM) 163.8 cm (10/30/17 1:14 PM) 163.8 cm (10/30/17 1:00 PM) Height 163.8 cm (10/30/17 1:20 PM) 163.8 cm (10/30/17 1:14 PM) 163.8 cm (10/30/17 1:00 PM) Height/Length Dosing 64 in (10/30/17 1:20 PM) 64 in (10/30/17 1:14 PM) 64 in (10/30/17 1:00 PM) Height Inches 122 kg (10/30/17 1:20 PM) 122 kg (10/30/17 1:14 PM) 122 kg (10/30/17 1:00 PM) Weight 122 kg (10/30/17 1:20 PM) 122 kg (10/30/17 1:14 PM) 122 kg (10/30/17 1:00 PM) Weight Dosing 268 lb (10/30/17 1:20 PM) 268 lb (10/30/17 1:14 PM) 268 lb (10/30/17 1:00 PM) Weight Pounds 45.47 kg/m2 (10/30/17 1:20 PM) 45.47 kg/m2 (10/30/17 1:14 PM) 45.47 kg/m2 (10/30/17 1:00 PM) Body Mass Index Problem List Condition Effective Dates Status Health Status Informan t Anemia(Confirmed)1 Resolved Anxiety(Confirmed) Active Bunion(Confirmed) Active Cellulitis(Confirmed 04/17/16 Resolved )2 Foot pain(Confirmed) Active PE - Pulmonary 04/17/12 Active embolism(Confirmed)3 Sleep Active apnea(Confirmed)4 1HX of iron infusion and blood transfusion. Hysterectomy done 2016 denies any problems since procedure 2abdomen and bottom of legs. 3Pt reports > 6 PE, cause unknown per pt. 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 4does not use cpap machine Allergies, Adverse Reactions, Alerts Substance Reaction Severity Status Augmentin Hives Moderate Active Itching Cipro Shortness of breath Moderate Active Wellbutrin Angioedema Moderate Active Medications ceFAZolin 3 gm, IV Piggyback, Once, infuse over 30 minutes, first dose 10/30/17 13:00:00 C DT, stop date 10/30/17 13:00:00 CDT, patient weight >120 kg, Prophylaxis Start Date: 10/30/17 Stop Date: 10/30/17 Status: Completed ceFAZolin 1 gm, Soln-IV, IV Piggyback, Once, first dose 10/30/17 14:53:00 CDT, stop date 0 10/30/17 14:53:00 CDT Start Date: 10/30/17 Stop Date: 10/30/17 Status: Completed ceFAZolin 2 gm, Soln-IV, IV Piggyback, Once, first dose 10/30/17 14:53:00 CDT, stop date 0 10/30/17 14:53:00 CDT Start Date: 10/30/17 Stop Date: 10/30/17 Status: Completed clonazePAM 1 mg oral tablet 1 mg = 1 tabs, Oral, qAM, 0 Refill(s), anxiety Start Date: 10/26/17 Stop Date: 11/09/17 Status: Ordered Demerol HCl 12.5 mg = 0.5 mL, Injection, IV Push, Once PRN for shivers, first dose 10/30/17 16:15:00 CDT Start Date: 10/30/17 Stop Date: 10/31/17 Status: Discontinued dexamethasone 8 mg = 2 mL, Injection, IV, Once, first dose 10/30/17 14:47:00 CDT, stop date 14:47:00 CDT Start Date: 10/30/17 Stop Date: 10/30/17 Status: Completed Dilaudid 0.5 mg = 0.5 mL, Injection, IV Push, q10min PRN for pain severe (7-10), first do se 10/30/17 16:15:00 CDT Start Date: 10/30/17 Stop Date: 10/31/17 Status: Discontinued diphenhydrAMINE 25 mg = 0.5 mL, Injection, IV Push, Once PRN for itching, first dose 10/30/17 16 :15:00 CDT Start Date: 10/30/17 Stop Date: 10/31/17 Status: Discontinued fentaNYL 50 mcg = 1 mL, Injection, IV, Once, first dose 10/30/17 15:46:00 CDT, stop date 10/30/17 15:46:00 CDT Start Date: 10/30/17 Stop Date: 10/30/17 Status: Completed fentaNYL 50 mcg = 1 mL, Injection, IV, Once, first dose 10/30/17 15:58:00 CDT, stop date 10/30/17 15:58:00 CDT Start Date: 10/30/17 Stop Date: 10/30/17 Status: Completed fentaNYL 50 mcg = 1 mL, Injection, IV, Once, first dose 10/30/17 14:51:00 CDT, stop date 10/30/17 14:51:00 CDT Start Date: 10/30/17 Stop Date: 10/30/17 Status: Completed fentaNYL 100 mcg = 2 mL, Injection, IV, Once, first dose 10/30/17 14:35:00 CDT, stop date 10/30/17 14:35:00 CDT Start Date: 10/30/17 Stop Date: 10/30/17 Status: Completed Keflex 500 mg oral capsule 500 mg = 1 caps, Oral, q6hr, 0 Refill(s) Start Date: 10/30/17 Stop Date: 11/13/17 Status: Ordered ketorolac 30 mg = 1 mL, Injection, IV, Once, first dose 10/30/17 16:02:00 CDT, stop date 0 10/30/17 16:02:00 CDT Start Date: 10/30/17 Stop Date: 10/30/17 Status: Completed Lactated Ringers Injection IV, start date 10/30/17 16:10:00 CDT, stop date 10/30/17 16:10:00 CDT Start Date: 10/30/17 Stop Date: 10/30/17 Status: Completed lidocaine 5 mL, Injection, IV, Once, first dose 10/30/17 14:37:00 CDT, stop date 10/30/17 14:37:00 CDT Start Date: 10/30/17 Stop Date: 10/30/17 Status: Completed Lidocaine 2% 0.2 mL IV Start [[place]] 0.2 mL, Injection, Subcutaneous, Once PRN for other (see comment), first dose 12:46:00 CDT Start Date: 10/30/17 Stop Date: 10/31/17 Status: Discontinued Lovenox 100 mg/mL injectable solution 100 mg = 1 mL, Subcutaneous, q12hr, # 10 EA, 0 Refill(s), Blood clots Start Date: 10/27/17 Stop Date: 11/10/17 Status: Ordered LR 1,000 mL 1,000 mL, IV, 30 mL/hr, start date 10/30/17 12:46:00 CDT Start Date: 10/30/17 Stop Date: 10/31/17 Status: Discontinued LR 1,000 mL 1,000 mL, IV, 75 mL/hr, start date 10/30/17 16:15:00 CDT Start Date: 10/30/17 Stop Date: 10/31/17 Status: Discontinued midazolam 2 mg = 2 mL, Injection, IV, Once, first dose 10/30/17 14:36:00 CDT, stop date 14:36:00 CDT Start Date: 10/30/17 Stop Date: 10/30/17 Status: Completed Misc Medication 1,000 mL, Soln-IV, IV, Once, first dose 10/30/17 15:15:00 CDT, stop date 8 15:15:00 CDT Start Date: 10/30/17 Stop Date: 10/30/17 Status: Completed ondansetron 4 mg = 2 mL, Injection, IV Push, q15min PRN for nausea, order duration: 2 doses, first dose 10/30/17 16:15:00 CDT, stop date Limited # of times Start Date: 10/30/17 Stop Date: 10/31/17 Status: Discontinued ondansetron 4 mg = 2 mL, Injection, IV, Once, first dose 10/30/17 15:59:00 CDT, stop date 15:59:00 CDT Start Date: 10/30/17 Stop Date: 10/30/17 Status: Completed promethazine 12.5 mg = 0.5 mL, Injection, IM, Once PRN for vomiting, first dose 10/30/17 16:1 5:00 CDT Start Date: 10/30/17 Stop Date: 10/31/17 Status: Discontinued propofol 150 mg = 15 mL, Emulsion, IV, Once, first dose 10/30/17 14:38:00 CDT, stop date 10/30/17 14:38:00 CDT Start Date: 10/30/17 Stop Date: 10/30/17 Status: Completed Saline Lock Flush 10 mL, Soln, IV Push, As Indicated PRN for flush, first dose 10/30/17 16:15:00 C DT Start Date: 10/30/17 Stop Date: 10/31/17 Status: Discontinued traMADol 50 mg oral tablet mg tabs, Oral, q4hr, 0 Refill(s), pain Start Date: 10/26/17 Stop Date: 11/09/17 Status: Ordered Xarelto 20 mg oral tablet mg tabs, Oral, qPM, 0 Refill(s), PE Start Date: 10/26/17 Stop Date: 11/09/17 Status: Ordered Xopenex 0.63 mg/3 mL inhalation solution 0.63 mg = 3 mL, Soln, NEB, Once PRN for wheezing, first dose 10/30/17 16:15:00 C DT Start Date: 10/30/17 Stop Date: 10/31/17 Status: Discontinued Results No data available for this section Immunizations No data available for this section Procedures Procedure Date Related Diagnosis Body Site BUNIONECTOMY; W/SESAMOIDECTOMY; W/PROXIMAL 10/30/17 PHALANX OSTEOTOMY 99634 (Left)1 CORRECTION HALLUX VALGUS W/SESAMOIDECTOMY ANY 8 METHOD 79070 (Left)2 FASCIECTOMY PLANTAR FACIA PARTIAL 09936 10/30/17 (Left)3 Partial hysterectomy4 2015 Cone biopsy of cervix 2009 Dilation and curettage Laparoscopy 1auto-populated from documented surgical case 2auto-populated from documented surgical case 3auto-populated from documented surgical case 4has ovaries Social History Social History Type Response Smoking Status Former smoker1 1quit 15 yrs ago Assessment and Plan No data available for this section
--- OUTSIDE RECORDS SUMMARY | 2019-09-26 07:27 | XMS REPORT | Summary of Care ---
Author Author MAT Burns, FREEMAN SHANKAR Organization Unknown Address Unknown Phone Unavailable Care Team Providers Care Toucher Up Name Role Phone MAT Burns, ROSALINA Unavailable Unavailable SOFIE CALLOWAY, DION Unavailable Unavailable SEBLE CALLOWAY, ARIELLE Unavailable Unavailable SHARON CALLOWAY, EVA Gay Unavailable Unavailable FIOR CALLOWAY, GREER Butler Unavailable Unavailable JULIAN CALLOWAY [place], HEATHER Goldberg Unavailable Unavailable AIDA CALLOWAY, COLEMAN Unavailable Unavailable Unavailable Unavailable Functional Status Name [...] 4 TIMES DAILY * Refills: 0 Active [place] TABS * Refills: 0 Active Allergies and [...] Heart trouble (429.9, I51.9) Comments: Multiple Family Ut mbers Status: Active Family history of cancer (V16.9, Z80.9) Comments: Multiple Family Ut mbers Status: Active Family history of mental disorder (V17.0 , Z81.8) Comments: Multiple Family Ut mbers Status: Active Family history of complications [...] smoker Vital Signs Date Test Result Details :29 BP Systolic 157 mm[Hg] Status: Comments: Lo [...] Planned Goals not documented Planned Encounters Appointment; ROSALINA RIVERO M.D. On: 22-May-2019 9:15 Appointment; DION CARRIZALES M.D. On: 17-Jan-2020 11:00 [...]
--- OUTSIDE RECORDS SUMMARY | 2019-09-26 07:27 | XMS REPORT | Summary of Care ---
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 * Quantity: 1 Refills: 3 MAT M.Dominic, ROSALINA * Start : 22-May-2019 Active 9.9 [...] Procedure Dates Details CT Sinus wo contrast 89208 Date: 22-May-2019 History of Laparoscopy (Diagnostic) Comp [...] - Start Labs/Procedures/Imaging* CT Sinus wo contrast 36804; To Be Done: 22 May 2019 Follow-ups/Referrals* [...]
--- OUTSIDE RECORDS SUMMARY | 2019-09-26 07:27 | XMS REPORT | Summary of Care ---
Author Author MAT Burns, FREEMAN SHANKAR Organization Unknown Address Unknown Phone Unavailable Care Team Providers Care Industrial Engineering Technologist Name Role Phone MAT Burns, ROSALINA Unavailable [...] 4 TIMES DAILY * Refills: 0 Active [place] TABS * Refills: 0 Active Fluticasone Propionate [...] Procedure Dates Details CT Sinus wo contrast 22532 Date: 22-May-2019 History of Laparoscopy (Diagnostic) Comp [...] - Start Labs/Procedures/Imaging* CT Sinus wo contrast 35997; To Be Done: 22 May 2019 Follow-ups/Referrals* Follow-up visit in 3 weeks; Done: 22 May 2019 Plan* 1. nasal endoscopy * 2. Start saline irrigations daily * 3. Refer to [facility] to discuss management of dentition * 4. Start fluticasone saline irrigations 1 spray 2x day. Rx placed * 5. CT sinus at next clinic visit * 6. RTC 3-4 weeks * Medical Decision Making: * Pt with recurrent acute sinusitis vs CRS has poor dentition that may be contributing to the sinusitis. Will start medical therapy and refer to [facility] for evaluation of dentition. Will get CT sinus scan. Instructions Name Dates Details Instructions not documented [...]
--- OUTSIDE RECORDS SUMMARY | 2019-09-26 07:28 | XMS REPORT | Summary of Care ---
Author Author FREEMAN Mcghee Organization Unknown Address Unknown Phone Unavailable Care Team Providers Care Slasher Operator Name Role Phone MAT Burns, ROSALINA Unavailable Unavailable Deja Mcghee Unavailable Unavailable SOFIE CALLOWAY, DION Unavailable Unavailable [...] 4 TIMES DAILY * Refills: 0 Active [place] TABS * Refills: 0 Active Fluticasone Propionate [...]
[2019-09-26] MEDS ORDERED: XARELTO10 MG (07:39)
[2019-09-26] MEDS ORDERED: CEFTRIAXONE SOD 1 GM VIAL IM ONE (07:45)
[2019-09-26] MEDS ORDERED: CEFDINIR300 MG PO (07:52)
--- NOTE | 2019-09-26 07:56 | Emergency Department Note ---
History of Present Illnes History of Present Illness Chief Complaint: Genitourinary History of Present Illness This is a 43 year old female c/o bladder pain and dysuria for few days . Historian: Patient Arrival Mode: Car Lab Scientist Required: No Onset (how long ago): day(s) (3) Radiation: Reports non-radiation Severity: moderate Onset quality: gradual Duration (how long): day(s) Timing of current episode: intermittent Progression: worsening Relieving factors: none Exacerbating factors: none Associated symptoms: Denies denies other symptoms, Denies confusion, Denies chest pain, Denies cough, Denies diaphoresis, Denies fever/chills, Denies headaches, Denies loss of appetite, Denies malaise, Denies nausea/vomiting, Denies rash, Denies seizure, Denies shortness of breath, Denies syncope, Denies weakness, Denies other Treatments prior to arrival: none Past Medical/Family History Physician Review I have reviewed the patient's past medical and family history. Any updates have been documented here. Past Medical History Recent Fever: No Clinical Suspicion of Infectio: No New/Unexplained Change in Ment: No Past Medical History: UTI's Other Medical History: PE Past Surgical History: Hysterectomy Social History Smoking Cessation: Never Smoker Alcohol Use: None Any Illegal Drug Use: No TB Exposure/Symptoms: No Physically hurt or threatened: No Family History Family history of heart diseas: No Other Any Pre-Existing Lines (PICC,: No Review of Systems Review of Systems Constitutional: Reports no symptoms EENTM: Reports no symptoms Cardiovascular: Reports no symptoms Respiratory: Reports no symptoms Gastrointestinal: Reports no symptoms Genitourinary: Reports no symptoms, Reports as per HPI, Reports pain Musculoskeletal: Reports no symptoms Integumentary: Reports no symptoms Neurological: Reports no symptoms Psychological: Reports no symptoms Endocrine: Reports no symptoms Hematological/Lymphatic: Reports no symptoms Physical Exam Related Data Allergies: Coded Allergies: bupropion (Verified Allergy, Severe, lips and throat swelling, 09/26/19) ciprofloxacin (Verified Allergy, Severe, breathing problems, 09/26/19) interaction with blood thinner amoxicillin (Verified Allergy, Intermediate, hives/rash, 09/26/19) clavulanic acid (Verified Allergy, Intermediate, hives/rash, 09/26/19) Physical Exam CONSTITUTIONAL Constitutional: Reports well-developed, Reports well-nourished, Reports obese HENT HENT: Reports normocephalic, Reports atraumatic, Reports oropharynx clear/toño st, Reports nose normal HENT L/R: Reports left ext ear normal, Reports right ext ear normal EYES Eyes: Reports PERRL, Reports conjunctivae normal NECK Neck: Reports ROM normal PULMONARY Pulmonary: Reports effort normal, Reports breath sounds normal CARDIOVASCULAR Cardiovascular: Reports regular rhythm, Reports heart sounds normal, Reports capillary refill normal, Reports normal rate GASTROINTESTINAL Abdominal: Reports soft, Reports nontender, Reports bowel sounds normal, Reports other (obese) GENITOURINARY Genitourinary: Reports exam deferred SKIN Skin: Reports warm, Reports dry MUSCULOSKELETAL Musculoskeletal: Reports ROM normal NEUROLOGICAL Neurological: Reports alert, Reports oriented x 3, Reports no gross motor or s ensory deficits PSYCHOLOGICAL Psychological: Reports mood/affect normal, Reports judgement normal Results Laboratory Lab results reviewed: Yes Laboratory comments c/w UTI Assessment & Plan Medical Decision Making [facility] UTI Reassessment Reassessment 43 yo AAF with UTI symptoms, lab studies confirmed clinical suspicion. pt is not septic, has no f/c, no n/v, can talk oral meds and fluid well. Would give her one Gram of Rocephin IM and d/c home with oral Cefdinir. She tolerated Keflex before so She should be able to take Cefdinir Assessment & Plan Final Impression: (1) Urinary tract infection Depart Disposition: HOME, SELF-FPC Meds Active Scripts Cefdinir (OMNICEF) 300 Mg Capsule, 300 MG PO BID for 10 Days, CAP Prov:ROHIT SANTILLAN MD 09/26/19 Reported Medications Rivaroxaban (XARELTO) 10 Mg Tablet, DAILY 09/26/19 Medications in the ED Rocephin 1 gm IM ROHIT SANTILLAN MD Sep 26, 2019 07:56
[2019-09-26] MEDS ORDERED: LIDOCAINE HCL 1% LOCAL INJ 20 ML VIAL ONE (07:57)
[2019-09-26 08:03] VITALS: BP 129/75
[2019-09-28] MEDS ORDERED: PYRIDIUM100 MG PO (08:10)
[2019-09-28] MEDS ORDERED: FLUCONAZOLE100 MG PO (08:10)
[2019-09-28] MEDS ORDERED: ACETAMINOPHEN325 M1 PO (08:10)
[2019-09-28] MEDS ORDERED: ULTRAM 50MG50 MG PO (09:02)
[2019-09-28] MEDS ORDERED: ZOFRAN4 MG SL (09:02)
== END 2019-09-26 08:19 | disposition home or self-care (01) ==
LOC: FSED 07:22
DX: R30.0 Dysuria (principal); R10.2 Pelvic and perineal pain; N39.0 Urinary tract infection, site not specified
CPT/HCPCS: 81003; 96372; 99283; J0696; J2001